=== PATIENT | male | born 1950 | race Caucasian/White ===

== ENCOUNTER 2020-06-03 13:25 | Emergency (ER) | payer MEDICARE, BC ==
[2020-06-03 13:44] VITALS: BP 103/84; PULSE 149
[2020-06-03] MEDS ORDERED: Adenosine 6 MG/2 ML SDV IVPUSH ONE (13:50)
[2020-06-03 14:55] LABS: ANION GAP 15.5 mEq/L (7-13); CHLORIDE,CL 103 mmol/L (98-107); SODIUM,NA 140 mmol/L (136-145)
--- NOTE | 2020-06-03 15:13 | EDM.PDOC ---
ED HPI GENERAL MEDICAL PROBLEM - General Chief Complaint: Cardiovascular Problem Stated Complaint: BP 90/50 HEART RATE 150 PT SAYS Time Seen by Provider: 06/03/20 13:50 Source of Information: Reports: Patient, RN, RN Notes Reviewed History Limitations: Reports: No Limitations - History of Present Illness INITIAL COMMENTS - FREE TEXT/NARRATIVE: Patient presents to ER with complaint of low blood pressure, and rapid heart rate. Patient states he is a chronic kidney disease patient, on peritoneal dialysis. States he had a hernia repair recently, so has not doing the peritoneal dialysis, is doing short-term hemodialysis. Patient states his Norvasc and his metoprolol has recently been cut back to half doses, Norvasc 5 daily, metoprolol 100 mg twice daily. Patient is to check his blood pressure daily before taking his medications. Patient states he did not check his blood pressure this morning, and took his medications. Admits to getting a sweaty hot feeling, followed by a chill. Denies any recent illness, chest pains shortness of breath, nausea, vomiting, diarrhea. Onset: Today, Sudden - Related Data Allergies Allergy/AdvReac Type Severity Reaction Status Date / Time lidocaine Allergy Rash Verified 06/03/20 13:50 Penicillins Allergy Cannot Verified 06/03/20 13:50 Remember Home Meds: Home Meds Calcitriol 0.5 mcg PO DAILY 05/26/15 [History] Citric Acid/Sodium Citrate [Cytra-2 Oral Solution] 60 ml PO BID 05/26/15 [History] Fludrocortisone Acetate 0.1 mg PO ASDIRECTED 05/26/15 [History] Isosorbide Mononitrate [Imdur] 60 mg PO BID 05/26/15 [History] Metoprolol Succinate 200 mg PO BID 05/26/15 [History] amLODIPine [Norvasc] 10 mg PO DAILY tablet 06/03/15 [Rx] Fludrocortisone [Florinef] 0.1 mg PO DAILY 09/25/16 [History] [place]-3/DHA/Epa/Fish Oil [[place]-3 Fish Oil 1,000 MG Sfgl] 1,000 mg PO DAILY 09/25/16 [History] hydrALAZINE [Apresoline] 50 mg PO BID 09/25/16 [History] Past Medical History HEENT History: Reports: Impaired Vision Cardiovascular History: Reports: Hypertension Respiratory History: Reports: None Gastrointestinal History: Reports: None Genitourinary History: Reports: Acute Renal Failure, BPH, Chronic Renal Insuffiency, Dialysis, Peritoneal, Prostate Disorder, Other (See Below) Other Genitourinary History: "40% kidney function" Musculoskeletal History: Reports: None Neurological History: Reports: None Psychiatric History: Reports: Anxiety, Depression Endocrine/Metabolic History: Reports: None Hematologic History: Reports: Blood Transfusion(s), Other (See Below) Other Hematologic History: MONOCLONAL GAMMOPATHY Immunologic History: Reports: None Oncologic (Cancer) History: Reports: None Dermatologic History: Reports: Eczema, Other (See Below) Other Dermatologic History: HX OF ECEZEMA ON BILAT HANDS; REDDENED AREAS UNDER NICOTINE PATCHES - Infectious Disease History Infectious Disease History: Reports: Chicken Pox, Mumps - Past Surgical History Head Surgeries/Procedures: Reports: None Cardiovascular Surgical History: Reports: None Respiratory Surgical History: Reports: None GI Surgical History: Reports: Hernia Repair/Other, Other (See Below) Male Surgical History: Reports: TURP-Transurethral Resection of Prostate Endocrine Surgical History: Reports: None Neurological Surgical History: Reports: None Musculoskeletal Surgical History: Reports: None Social & Family History - Family History Family Medical History: Noncontributory - Tobacco Use Smoking Status *Q: Current Every Day Smoker Years of Tobacco use: 30 Packs/Tins Daily: 0.5 Second Hand Smoke Exposure: No - Caffeine Use Caffeine Use: Reports: None - Recreational Drug Use Recreational Drug Use: No - Living Situation & Occupation Living situation: Reports: , with Family Occupation: Employed ED ROS GENERAL - Review of Systems Review Of Systems: Comprehensive ROS is negative, except as noted in HPI. ED EXAM, GENERAL - Physical Exam Exam: See Below Exam Limited By: No Limitations General Appearance: Alert, WD/WN, No Apparent Distress Eye Exam: Bilateral Eye: EOMI, Normal Inspection Ears: Normal External Exam, Hearing Grossly Normal Nose: Normal Inspection Throat/Mouth: Normal Inspection, Normal Voice, No Airway Compromise Head: Atraumatic, Normocephalic Neck: Normal Inspection, Supple, Non-Tender, Full Range of Motion Respiratory/Chest: No Respiratory Distress, Lungs Clear, Normal Breath Sounds, No Accessory Muscle Use, Chest Non-Tender Cardiovascular: Normal Peripheral Pulses, Regular Rate, Rhythm, No Edema, No Gallop, No JVD, No Murmur, No Rub, Tachycardia Peripheral Pulses: 2+: Radial (L), Radial (R) GI/Abdominal: Normal Bowel Sounds, Soft, Non-Tender (Male) Exam: Deferred Rectal (Males) Exam: Deferred Back Exam: Normal Inspection, Full Range of Motion, NT Extremities: Normal Inspection, Normal Range of Motion, Non-Tender, Normal Capillary Refill, No Pedal Edema Neurological: Alert, Oriented, CN II-XII Intact, Normal Cognition, Normal Gait, Normal Reflexes, No Motor/Sensory Deficits Psychiatric: Normal Affect, Normal Mood Skin Exam: Warm, Dry, Intact, Normal Color, No Rash Lymphatic: No Adenopathy Course - Vital Signs Last Recorded V/S: Last Vital Signs Temp 97.9 F 06/03/20 13:40 Pulse 149 H 06/03/20 13:40 Resp 24 H 06/03/20 13:40 BP 103/84 06/03/20 13:40 Pulse Ox 100 06/03/20 13:40 - Orders/Labs/Meds Orders: Active Orders 24 hr Category Date Time Status EKG 12 Lead [EKG Documentation Completion] [RC] STAT Care 06/03/20 13:45 Active EKG Documentation Completion [RC] STAT Care 06/03/20 14:04 Active Labs: Laboratory Tests 06/03/20 06/03/20 Range/Units 14:28 14:28 WBC 11.0 H (5.0-10.0) 10^3/uL RBC 3.20 L (4.6-6.2) 10^6/uL Hgb 10.1 L D (14.0-18.0) g/dL Hct 31.4 L (40.0-54.0) % MCV 98.1 D (80-100) fL MCH 31.6 (27.0-34.0) pg MCHC 32.2 L (33.0-35.0) g/dL Plt Count 503 H (150-450) 10^3/uL Neut % (Auto) 60.4 (42.2-75.2) % Lymph % (Auto) 20.3 L (20.5-50.1) % [place] % (Auto) 11.1 H (2-8) % Eos % (Auto) 7.3 H (1.0-3.0) % Baso % (Auto) 0.9 (0.0-1.0) % Sodium 140 (136-145) mmol/L Potassium 4.5 (3.5-5.1) mmol/L Chloride 103 (98-107) mmol/L Carbon Dioxide 26 (21-32) mmol/L Anion Gap 15.5 H (7-13) mEq/L BUN 33 H (7-18) mg/dL Creatinine 6.52 H* (0.70-1.30) mg/dL Est Cr Clr Drug Dosing 11.39 mL/min Estimated GFR (MDRD) 9 BUN/Creatinine Ratio 5.1 (No establ ref range) Glucose 109 H (74-99) mg/dL Calcium 8.3 L (8.5-10.1) mg/dL Total Bilirubin 0.2 (0.2-1.0) mg/dL AST 13 L (15-37) U/L ALT 14 L (16-63) U/L Alkaline Phosphatase 64 (46-116) U/L Troponin I < 0.017 (0.000-0.056) ng/mL Total Protein 7.6 (6.4-8.2) g/dL Albumin 2.7 L (3.4-5.0) g/dL Globulin 4.9 Albumin/Globulin Ratio 0.55 Meds: Medications Discontinued Medications Generic Name Dose Route Start Last Admin Trade Name Abigail PRN Reason Stop Dose Admin Adenosine 6 mg 06/03/20 13:50 06/03/20 13:58 Adenocard IVPUSH 06/03/20 13:51 6 mg NOW ONE Administration - Re-Assessments/Exams Free Text/Narrative Re-Assessment/Exam: 06/03/20 15:11 Heart rate initially 150s and regular. Adenosine 6 mg given IV push. Heart rate slowed to 70s sinus rhythm. 06/03/20 15:12 Pressure initially 103/59. After adenosine and heart rate slowed, blood pressure 159/77. Departure - Departure Time of Disposition: 15:14 Disposition: Home, Self-Care 01 Reason for Transfer *Q: Other Condition: Fair Clinical Impression: Chronic kidney disease on chronic dialysis, SVT (supraventricular tachycardia) Instructions: Supraventricular Tachycardia, Adult, [id number] Additional Instructions: Follow-up with your program project manager Follow-up with your primary care provider in the clinic Return to the ER with any worsening of symptoms Monitor blood pressure and heart rate Take medications as prescribed Sepsis Event Note (ED) - Evaluation Sepsis Screening Result: No Definite Risk - Focused Exam Vital Signs: Vital Signs Temp Pulse Resp BP Pulse Ox 06/03/20 13:40 97.9 F 149 H 24 H 103/84 100 - My Orders Last 24 Hours: My Active Orders 06/03/20 13:45 EKG 12 Lead [EKG Documentation Completion] [RC] STAT 06/03/20 14:04 EKG Documentation Completion [RC] STAT - Assessment/Plan Last 24 Hours: My Active Orders 06/03/20 13:45 EKG 12 Lead [EKG Documentation Completion] [RC] STAT 06/03/20 14:04 EKG Documentation Completion [RC] STAT
== END 2020-06-03 15:29 | disposition home or self-care (01) ==
LOC: DL.ED 13:25
DX: I47.1 Supraventricular tachycardia (principal); I12.9 Hypertensive chronic kidney disease with stage 1 through stage 4 chronic kidney disease, or unspecified chronic kidney disease; N18.9 Chronic kidney disease, unspecified; F41.9 Anxiety disorder, unspecified; F17.210 Nicotine dependence, cigarettes, uncomplicated; Z99.2 Dependence on renal dialysis; Z88.6 Allergy status to analgesic agent; Z88.0 Allergy status to penicillin; Z79.899 Other long term (current) drug therapy
CPT/HCPCS: 36415; 80053; 84484; 85025; 93005; 96374; 99285-25; J0153

== ENCOUNTER 2020-06-05 07:00 | Emergency (ER) | payer MEDICARE, BC ==
[2020-06-05] MEDS ORDERED: Adenosine 6 MG/2 ML SDV IVPUSH ONE (07:33)
[2020-06-05 07:46] VITALS: BP 111/87; PULSE 148
--- NOTE | 2020-06-05 07:48 | EDM.PDOC ---
ED HPI GENERAL MEDICAL PROBLEM - General Chief Complaint: Cardiovascular Problem Stated Complaint: heart rate out of control Time Seen by Provider: 06/05/20 07:35 Source of Information: Reports: Patient History Limitations: Reports: No Limitations - History of Present Illness INITIAL COMMENTS - FREE TEXT/NARRATIVE: Patient presents with complaints of a rapid heart rate and low blood pressure. It started around 4 this morning and woke him from sleep. He was supposed to go for hemodialysis today, but was feeling too rough to make it so he came here for evaluation. This happened 2 days ago as well. He was given an IV push of adenosine with normalization of his heart rate. He was monitored for a while then discharged home. He had been doing well, without recurrence of symptoms, until this morning. He denies being sick since his surgery a few weeks ago for an abdominal hernia. Onset: Today Onset Time: 04:00 Duration: Constant - Related Data Allergies Allergy/AdvReac Type Severity Reaction Status Date / Time lidocaine Allergy Rash Verified 06/05/20 07:25 Penicillins Allergy Cannot Verified 06/05/20 07:25 Remember Home Meds: Home Meds Calcitriol 0.5 mcg PO DAILY 05/26/15 [History] Citric Acid/Sodium Citrate [Cytra-2 Oral Solution] 60 ml PO BID 05/26/15 [History] Fludrocortisone Acetate 0.1 mg PO ASDIRECTED 05/26/15 [History] Isosorbide Mononitrate [Imdur] 60 mg PO BID 05/26/15 [History] Metoprolol Succinate 200 mg PO BID 05/26/15 [History] amLODIPine [Norvasc] 10 mg PO DAILY tablet 06/03/15 [Rx] Fludrocortisone [Florinef] 0.1 mg PO DAILY 09/25/16 [History] [place]-3/DHA/Epa/Fish Oil [[place]-3 Fish Oil 1,000 MG Sfgl] 1,000 mg PO DAILY 09/25/16 [History] hydrALAZINE [Apresoline] 50 mg PO BID 09/25/16 [History] Sevelamer Carbonate 800 mg PO ASDIRECTED 06/05/20 [History] Past Medical History HEENT History: Reports: Impaired Vision Cardiovascular History: Reports: Hypertension Respiratory History: Reports: None Gastrointestinal History: Reports: None Genitourinary History: Reports: Acute Renal Failure, BPH, Chronic Renal Insuffiency, Dialysis, Peritoneal, Prostate Disorder, Other (See Below) Other Genitourinary History: "40% kidney function" Musculoskeletal History: Reports: None Neurological History: Reports: None Psychiatric History: Reports: Anxiety, Depression Endocrine/Metabolic History: Reports: None Hematologic History: Reports: Blood Transfusion(s), Other (See Below) Other Hematologic History: MONOCLONAL GAMMOPATHY Immunologic History: Reports: None Oncologic (Cancer) History: Reports: None Dermatologic History: Reports: Eczema, Other (See Below) Other Dermatologic History: HX OF ECEZEMA ON BILAT HANDS; REDDENED AREAS UNDER NICOTINE PATCHES - Infectious Disease History Infectious Disease History: Reports: Chicken Pox, Mumps - Past Surgical History Head Surgeries/Procedures: Reports: None Cardiovascular Surgical History: Reports: None Respiratory Surgical History: Reports: None GI Surgical History: Reports: Hernia Repair/Other, Other (See Below) Male Surgical History: Reports: TURP-Transurethral Resection of Prostate Endocrine Surgical History: Reports: None Neurological Surgical History: Reports: None Musculoskeletal Surgical History: Reports: None Social & Family History - Family History Family Medical History: Noncontributory - Caffeine Use Caffeine Use: Reports: None - Living Situation & Occupation Living situation: Reports: , with Family Occupation: Employed ED ROS GENERAL - Review of Systems Review Of Systems: Comprehensive ROS is negative, except as noted in HPI. ED EXAM, GENERAL - Physical Exam Exam: See Below Exam Limited By: No Limitations General Appearance: Alert, WD/WN, No Apparent Distress Ears: Normal External Exam Head: Atraumatic, Normocephalic Neck: Normal Inspection, Supple Respiratory/Chest: No Respiratory Distress, Lungs Clear, Normal Breath Sounds, No Accessory Muscle Use Cardiovascular: Normal Peripheral Pulses, No JVD, No Murmur, Tachycardia GI/Abdominal: Soft Extremities: Normal Inspection Neurological: Alert, Oriented, Normal Cognition Psychiatric: Normal Affect, Normal Mood Skin Exam: Warm, Dry, Intact, Normal Color, No Rash EKG INTERPRETATION EKG Date: 06/05/20 Time: 07:20 Rate (Beats/Min): 145 [place]: Normal QRS: Normal ST-T: Normal Course - Orders/Labs/Meds Orders: Active Orders 24 hr Category Date Time Status EKG 12 Lead [EKG Documentation Completion] [RC] STAT Care 06/05/20 07:29 Active Meds: Medications Discontinued Medications Generic Name Dose Route Start Last Admin Trade Name Freq PRN Reason Stop Dose Admin Adenosine 6 mg 06/05/20 07:33 Adenocard IVPUSH 06/05/20 07:34 NOW ONE Departure - Departure Time of Disposition: 08:03 Disposition: Home, Self-Care 01 Condition: Good Clinical Impression: Paroxysmal supraventricular tachycardia Instructions: Supraventricular Tachycardia, Adult Referrals: Cole Carson, EMEKA [Ordering Only Provider] - - Problem List & Annotations (1) SVT (supraventricular tachycardia) SNOMED Code(s): 6103703 Code(s): I47.1 - SUPRAVENTRICULAR TACHYCARDIA Status: Acute - Problem List Review Problem List Initiated/Reviewed/Updated: Yes - My Orders Last 24 Hours: My Active Orders 06/05/20 07:29 EKG 12 Lead [EKG Documentation Completion] [RC] STAT - Assessment/Plan Last 24 Hours: My Active Orders 06/05/20 07:29 EKG 12 Lead [EKG Documentation Completion] [RC] STAT Assessment:: 70 yo male with acute onset SVT who converted with one dose of adenosine Plan: Keep upcoming appointments with nephrology Follow up with PCP regarding recurrent SVT episodes as this was his second Advised to avoid driving until seen by his PCP Reviewed reasons to call/return to the ER
== END 2020-06-05 08:25 | disposition home or self-care (01) ==
LOC: DL.ED 07:00
DX: I47.1 Supraventricular tachycardia (principal); I12.9 Hypertensive chronic kidney disease with stage 1 through stage 4 chronic kidney disease, or unspecified chronic kidney disease; N18.9 Chronic kidney disease, unspecified; Z88.6 Allergy status to analgesic agent; Z88.0 Allergy status to penicillin
CPT/HCPCS: 93005; 96374; 99284; J0153; 93010

== ENCOUNTER 2020-06-14 02:43 | Emergency (ER) | payer MEDICARE, BC ==
[2020-06-14 02:53] VITALS: BP 116/80; PULSE 138
[2020-06-14] MEDS ORDERED: Adenosine 6 MG/2 ML SDV IVPUSH ONE (02:54)
--- NOTE | 2020-06-14 02:57 | EDM.PDOC ---
ED HPI GENERAL MEDICAL PROBLEM - General Chief Complaint: Cardiovascular Problem Stated Complaint: HEART RATE WAY UP AGAIN Time Seen by Provider: 06/14/20 02:55 Source of Information: Reports: Patient History Limitations: Reports: No Limitations - History of Present Illness INITIAL COMMENTS - FREE TEXT/NARRATIVE: woke up with heart racing. had this few times already. denies chest pain and has appt with cardio next month. - Related Data Allergies Allergy/AdvReac Type Severity Reaction Status Date / Time lidocaine Allergy Rash Verified 06/14/20 02:50 Penicillins Allergy Cannot Verified 06/14/20 02:50 Remember Home Meds: Home Meds Calcitriol 0.5 mcg PO DAILY 05/26/15 [History] Citric Acid/Sodium Citrate [Cytra-2 Oral Solution] 60 ml PO BID 05/26/15 [History] Isosorbide Mononitrate [Imdur] 60 mg PO BID 05/26/15 [History] Metoprolol Succinate 100 mg PO BID 05/26/15 [History] Fludrocortisone [Florinef] 0.1 mg PO DAILY 09/25/16 [History] [place]-3/DHA/Epa/Fish Oil [[place]-3 Fish Oil 1,000 MG Sfgl] 1,000 mg PO DAILY 09/25/16 [History] hydrALAZINE [Apresoline] 50 mg PO BID 09/25/16 [History] Sevelamer Carbonate 800 mg PO ASDIRECTED 06/05/20 [History] amLODIPine [Norvasc] 5 mg PO DAILY 06/05/20 [History] Past Medical History HEENT History: Reports: Impaired Vision Cardiovascular History: Reports: Hypertension Other Cardiovascular History: SVT Respiratory History: Reports: None Gastrointestinal History: Reports: None Genitourinary History: Reports: Acute Renal Failure, BPH, Chronic Renal Insuffiency, Dialysis, Peritoneal, Prostate Disorder, Other (See Below) Other Genitourinary History: "40% kidney function" Musculoskeletal History: Reports: None Neurological History: Reports: None Psychiatric History: Reports: Anxiety, Depression Endocrine/Metabolic History: Reports: None Hematologic History: Reports: Blood Transfusion(s), Other (See Below) Other Hematologic History: MONOCLONAL GAMMOPATHY Immunologic History: Reports: None Oncologic (Cancer) History: Reports: None Dermatologic History: Reports: Eczema, Other (See Below) Other Dermatologic History: HX OF ECEZEMA ON BILAT HANDS; REDDENED AREAS UNDER NICOTINE PATCHES - Infectious Disease History Infectious Disease History: Reports: Chicken Pox, Mumps - Past Surgical History Head Surgeries/Procedures: Reports: None Cardiovascular Surgical History: Reports: None Respiratory Surgical History: Reports: None GI Surgical History: Reports: Hernia Repair/Other, Other (See Below) Male Surgical History: Reports: TURP-Transurethral Resection of Prostate Endocrine Surgical History: Reports: None Neurological Surgical History: Reports: None Musculoskeletal Surgical History: Reports: None Social & Family History - Family History Family Medical History: Noncontributory - Caffeine Use Caffeine Use: Reports: None - Living Situation & Occupation Living situation: Reports: , with Family Occupation: Employed ED ROS GENERAL - Review of Systems Review Of Systems: Comprehensive ROS is negative, except as noted in HPI. ED EXAM, GENERAL - Physical Exam Exam: See Below Exam Limited By: No Limitations General Appearance: Alert, WD/WN, Anxious, Mild Distress, Moderate Distress Ears: Hearing Grossly Normal Throat/Mouth: Normal Voice, No Airway Compromise Head: Atraumatic Neck: Non-Tender, Full Range of Motion Respiratory/Chest: No Respiratory Distress Cardiovascular: Tachycardia GI/Abdominal: Soft, Non-Tender (Male) Exam: Deferred Rectal (Males) Exam: Deferred Extremities: No Pedal Edema Neurological: Alert, Oriented, Normal Cognition, Normal Gait, No Motor/Sensory Deficits Psychiatric: Anxious Skin Exam: Warm, Dry, Normal Color Lymphatic: No Adenopathy Course - Vital Signs Last Recorded V/S: Last Vital Signs Temp 36.7 C 06/14/20 02:51 Pulse 138 H 06/14/20 02:51 Resp 21 H 06/14/20 02:51 BP 116/80 06/14/20 02:51 Pulse Ox 100 06/14/20 02:51 - Orders/Labs/Meds Orders: Active Orders 24 hr Category Date Time Status EKG 12 Lead [EKG Documentation Completion] [RC] STAT Care 06/14/20 02:55 Active Labs: Laboratory Tests 06/14/20 06/14/20 Range/Units 02:59 02:59 WBC 13.3 H (5.0-10.0) 10^3/uL RBC 3.76 L (4.6-6.2) 10^6/uL Hgb 11.9 L D (14.0-18.0) g/dL Hct 36.4 L (40.0-54.0) % MCV 96.8 (80-100) fL MCH 31.6 (27.0-34.0) pg MCHC 32.7 L (33.0-35.0) g/dL Plt Count 461 H (150-450) 10^3/uL Neut % (Auto) 55.4 (42.2-75.2) % Lymph % (Auto) 21.3 (20.5-50.1) % [place] % (Auto) 11.8 H (2-8) % Eos % (Auto) 10.6 H (1.0-3.0) % Baso % (Auto) 0.9 (0.0-1.0) % Add Manual Diff Yes Neutrophils % (Manual) 58 (42-75) % Lymphocytes % (Manual) 24 (20-50) % Monocytes % (Manual) 10 H (2-8) % Eosinophils % (Manual) 8 H (1-3) % Sodium 138 (136-145) mmol/L Potassium 4.3 (3.5-5.1) mmol/L Chloride 104 (98-107) mmol/L Carbon Dioxide 18 L (21-32) mmol/L Anion Gap 20.3 H (7-13) mEq/L BUN 55 H (7-18) mg/dL Creatinine 8.05 H* D (0.70-1.30) mg/dL Est Cr Clr Drug Dosing 9.22 mL/min Estimated GFR (MDRD) 7 BUN/Creatinine Ratio 6.8 (No establ ref range) Glucose 130 H (74-99) mg/dL Calcium 9.2 (8.5-10.1) mg/dL Total Bilirubin 0.3 (0.2-1.0) mg/dL AST 10 L (15-37) U/L ALT 19 (16-63) U/L Alkaline Phosphatase 66 (46-116) U/L Troponin I < 0.017 (0.000-0.056) ng/mL Total Protein 8.6 H (6.4-8.2) g/dL Albumin 3.2 L (3.4-5.0) g/dL Globulin 5.4 Albumin/Globulin Ratio 0.59 Meds: Medications Discontinued Medications Generic Name Dose Route Start Last Admin Trade Name Freq PRN Reason Stop Dose Admin Adenosine 6 mg 06/14/20 02:54 06/14/20 03:05 Adenocard IVPUSH 06/14/20 02:55 6 mg NOW ONE Administration - Re-Assessments/Exams Free Text/Narrative Re-Assessment/Exam: 06/14/20 03:10 converted back to NSR @ 76 with 1x adenosine. pt states fells better and denies CP. 06/14/20 03:45 results discussed with pt who remains feeling good. states has dialysis @ [facility] this am. advised pt to contact cardio while in this am. Departure - Departure Time of Disposition: 03:46 Disposition: Home, Self-Care 01 Condition: Good Clinical Impression: Paroxysmal supraventricular tachycardia Instructions: Supraventricular Tachycardia, Adult, [id number] Forms: ED Department Discharge Additional Instructions: 1) rest 2) notify web offset press feeder while in [place] today 3) recheck if there is any change or concern Sepsis Event Note (ED) - Evaluation Sepsis Screening Result: No Definite Risk - Focused Exam Vital Signs: Vital Signs Temp Pulse Resp BP Pulse Ox 06/14/20 02:51 36.7 C 138 H 21 H 116/80 100 - My Orders Last 24 Hours: My Active Orders 06/14/20 02:55 EKG 12 Lead [EKG Documentation Completion] [RC] STAT - Assessment/Plan Last 24 Hours: My Active Orders 06/14/20 02:55 EKG 12 Lead [EKG Documentation Completion] [RC] STAT
[2020-06-14 03:33] LABS: ANION GAP 20.3 mEq/L (7-13); CHLORIDE,CL 104 mmol/L (98-107); SODIUM,NA 138 mmol/L (136-145)
== END 2020-06-14 04:00 | disposition home or self-care (01) ==
LOC: DL.ED 02:43
DX: I47.1 Supraventricular tachycardia (principal); I10 Essential (primary) hypertension; Z79.899 Other long term (current) drug therapy; Z88.6 Allergy status to analgesic agent; Z88.0 Allergy status to penicillin
CPT/HCPCS: 36415; 80053; 84484; 85025; 93005; 96374; 99284; 99285; J0153

== ENCOUNTER 2020-10-03 16:27 | Emergency (ER) | payer MEDICARE, BC ==
[2020-10-03 16:43] VITALS: BP 133/87; PULSE 136
--- NOTE | 2020-10-03 17:00 | EDM.PDOC ---
<RoderickJerad Maria Elena - Last Filed: 10/03/20 17:14> ED HPI GENERAL MEDICAL PROBLEM - General Chief Complaint: Chest Pain Stated Complaint: IRREGULAR HEART RATE Time Seen by Provider: 10/03/20 16:56 Source of Information: Reports: Patient, RN History Limitations: Reports: No Limitations - History of Present Illness INITIAL COMMENTS - FREE TEXT/NARRATIVE: 70 y/o M c/o fast heart rate since this morning. Pt had one episode of vomiting. Hx of afib and is due to have an ablation. Has been seen in the er before for the same complaint. Denies CP, SOB, abd pn, recent trauma, abd pn, fever, cough, chills, drugs, etoh. Onset: Today, Sudden Duration: Hour(s): Location: Reports: Chest Improves with: Reports: None Worsens with: Reports: None Associated Symptoms: Reports: Nausea/Vomiting chest,neck Pain Score (Numeric/FACES): 3 - Related Data Allergies Allergy/AdvReac Type Severity Reaction Status Date / Time lidocaine Allergy Rash Verified 10/03/20 16:41 Penicillins Allergy Cannot Verified 10/03/20 16:41 Remember Home Meds: Home Meds Metoprolol Succinate 200 mg PO BID 05/26/15 [History] [place]-3/DHA/Epa/Fish Oil [[place]-3 Fish Oil 1,000 MG Sfgl] 1,000 mg PO DAILY 09/25/16 [History] hydrALAZINE [Apresoline] 50 mg PO BID 09/25/16 [History] Sevelamer Carbonate 800 mg PO ASDIRECTED 06/05/20 [History] Acetaminophen [Tylenol] 650 mg PO Q6HR PRN 09/01/20 [History] Aspirin [Ecotrin EC] 81 mg PO DAILY 09/01/20 [History] Mupirocin Cream [Bactroban Crm] 1 applicful TOP DAILY PRN 09/01/20 [History] Zinc 50 mg PO DAILY 09/01/20 [History] amLODIPine Besylate [Norvasc] 10 mg PO DAILY 09/01/20 [History] atorvaSTATin [Lipitor] 10 mg PO DAILY 09/01/20 [History] calcitrioL [Rocaltrol] 0.25 mcg PO .M,T,W,R,F 09/01/20 [History] Past Medical History HEENT History: Reports: Impaired Vision Cardiovascular History: Reports: Afib, Hypertension Other Cardiovascular History: SVT Respiratory History: Reports: None Gastrointestinal History: Reports: Bowel Obstruction Genitourinary History: Reports: Acute Renal Failure, BPH, Chronic Renal Insuffiency, Dialysis, Peritoneal, Prostate Disorder, Other (See Below) Other Genitourinary History: "40% kidney function" Musculoskeletal History: Reports: None Neurological History: Reports: None Psychiatric History: Reports: Anxiety, Depression Endocrine/Metabolic History: Reports: None Hematologic History: Reports: Blood Transfusion(s), Other (See Below) Other Hematologic History: MONOCLONAL GAMMOPATHY Immunologic History: Reports: None Oncologic (Cancer) History: Reports: None Dermatologic History: Reports: Eczema, Other (See Below) Other Dermatologic History: HX OF ECEZEMA ON BILAT HANDS; REDDENED AREAS UNDER NICOTINE PATCHES - Infectious Disease History Infectious Disease History: Reports: Chicken Pox, Mumps - Past Surgical History Head Surgeries/Procedures: Reports: None HEENT Surgical History: Reports: None Cardiovascular Surgical History: Reports: None Respiratory Surgical History: Reports: None GI Surgical History: Reports: Hernia Repair/Other, Other (See Below) Other GI Surgeries/Procedures: SPLENECTOMY Male Surgical History: Reports: TURP-Transurethral Resection of Prostate Endocrine Surgical History: Reports: None Neurological Surgical History: Reports: None Musculoskeletal Surgical History: Reports: None Dermatological Surgical History: Reports: None Social & Family History - Family History Family Medical History: No Pertinent Family History - Tobacco Use Tobacco Use Status *Q: Current Every Day Tobacco User Years of Tobacco use: 45 Packs/Tins Daily: 1 Second Hand Smoke Exposure: No - Caffeine Use Caffeine Use: Reports: Coffee - Recreational Drug Use Recreational Drug Use: No - Living Situation & Occupation Living situation: Reports: , with Family Occupation: Employed ED ROS GENERAL - Review of Systems Review Of Systems: Comprehensive ROS is negative, except as noted in HPI. ED EXAM, GENERAL - Physical Exam Exam: See Below Exam Limited By: No Limitations General Appearance: Alert, WD/WN, No Apparent Distress Ears: Normal External Exam, Normal Canal, Hearing Grossly Normal, Normal TMs Ear Exam: Bilateral Ear: Auricle Normal, Canal Normal, TM normal Nose: Normal Inspection, Normal Mucosa, No Blood Throat/Mouth: Normal Inspection, Normal Lips, Normal Teeth, Normal Gums, Normal Oropharynx, Normal Voice, No Airway Compromise Head: Atraumatic, Normocephalic Neck: Normal Inspection, Supple, Non-Tender, Full Range of Motion Respiratory/Chest: No Respiratory Distress, Lungs Clear, Normal Breath Sounds, No Accessory Muscle Use, Chest Non-Tender Cardiovascular: No Edema, No Gallop, No JVD, No Murmur, No Rub, Tachycardia GI/Abdominal: Soft, Non-Tender, Other (urostomy present) (Male) Exam: Deferred Rectal (Males) Exam: Deferred Back Exam: Normal Inspection Extremities: Normal Inspection, Normal Range of Motion, No Pedal Edema Neurological: Alert, Oriented, CN II-XII Intact, Normal Cognition, Normal Gait, Normal Reflexes, No Motor/Sensory Deficits Psychiatric: Normal Affect, Normal Mood Skin Exam: Warm, Dry, Intact, Normal Color, No Rash Departure - Departure Disposition: Home, Self-Care 01 Clinical Impression: Atrial fibrillation with RVR Atrial fibrillation Qualifiers: Atrial fibrillation type: unspecified chronic Qualified Code(s): 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, 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; I48.2 - Chronic atrial fibrillation Instructions: Atrial Fibrillation, [id number] Forms: ED Department Discharge Additional Instructions: Return to the ER with any further problems Follow up with Cardiology tomorrow Sepsis Event Note (ED) - Evaluation Sepsis Screening Result: No Definite Risk <Hailey Dunn - Last Filed: 10/03/20 18:50> Course - Vital Signs Last Recorded V/S: Last Vital Signs Temp 98 F 10/03/20 16:35 Pulse 136 H 10/03/20 16:35 Resp 27 H 10/03/20 16:35 BP 133/87 10/03/20 16:35 Pulse Ox 97 10/03/20 16:35 - Orders/Labs/Meds Orders: Active Orders 24 hr Category Date Time Status EKG Documentation Completion [RC] STAT Care 10/03/20 16:36 Active EKG Documentation Completion [RC] STAT Care 10/03/20 17:28 Active Sodium Chloride 0.9% [Normal Saline] 1,000 ml Med 10/03/20 17:15 Active IV ASDIRECTED Medication Orders Sodium Chloride (Normal Saline) 1,000 mls @ 1,999 mls/hr IV ASDIRECTED MINOO Last Infusion: 10/03/20 18:00 Dose: 175 mls/hr Documented by: Admin: 10/03/20 17:13 Dose: 1,999 mls/hr Documented by: FEDERICO Labs: Laboratory Tests 10/03/20 10/03/20 Range/Units 16:41 16:41 WBC 15.7 H (5.0-10.0) 10^3/uL RBC 3.20 L (4.6-6.2) 10^6/uL Hgb 10.0 L (14.0-18.0) g/dL Hct 30.8 L (40.0-54.0) % MCV 96.3 (80-100) fL MCH 31.3 (27.0-34.0) pg MCHC 32.5 L (33.0-35.0) g/dL Plt Count 447 (150-450) 10^3/uL Neut % (Auto) 58.5 (42.2-75.2) % Lymph % (Auto) 18.7 L (20.5-50.1) % [place] % (Auto) 12.5 H (2-8) % Eos % (Auto) 9.6 H (1.0-3.0) % Baso % (Auto) 0.7 (0.0-1.0) % Add Manual Diff Yes Neutrophils % (Manual) 57 (42-75) % Lymphocytes % (Manual) 21 (20-50) % Monocytes % (Manual) 10 H (2-8) % Eosinophils % (Manual) 12 H (1-3) % Toxic Granulation 2+ moderate Sodium 134 L (136-145) mmol/L Potassium 4.0 (3.5-5.1) mmol/L Chloride 98 (98-107) mmol/L Carbon Dioxide 28 (21-32) mmol/L Anion Gap 12.0 (7-13) mEq/L BUN 34 H (7-18) mg/dL Creatinine 7.10 H* (0.70-1.30) mg/dL Est Cr Clr Drug Dosing 10.46 mL/min Estimated GFR (MDRD) 8 BUN/Creatinine Ratio 4.8 (No establ ref range) Glucose 103 H (74-99) mg/dL Calcium 8.7 (8.5-10.1) mg/dL Magnesium 1.9 (1.8-2.4) mg/dL Total Bilirubin 0.3 (0.2-1.0) mg/dL AST 12 L (15-37) U/L ALT 20 (16-63) U/L Alkaline Phosphatase 80 (46-116) U/L Troponin I < 0.017 (0.000-0.056) ng/mL Total Protein 8.0 (6.4-8.2) g/dL Albumin 2.7 L (3.4-5.0) g/dL Globulin 5.3 Albumin/Globulin Ratio 0.51 Meds: Medications Generic Name Dose Route Start Last Admin Trade Name Freq PRN Reason Stop Dose Admin Sodium Chloride 1,000 mls @ 1,999 mls/hr 10/03/20 17:15 10/03/20 18:00 Normal Saline IV Infused ASDIRECTED MINOO Infusion Discontinued Medications Generic Name Dose Route Start Last Admin Trade Name Freq PRN Reason Stop Dose Admin Diltiazem HCl 5 mg 10/03/20 17:09 10/03/20 17:19 Diltiazem IVPUSH 10/03/20 17:10 5 mg ONETIME ONE Administration Diltiazem HCl 10 mg 10/03/20 17:51 10/03/20 17:57 Diltiazem IVPUSH 10/03/20 17:52 10 mg ONETIME ONE Administration - Re-Assessments/Exams Free Text/Narrative Re-Assessment/Exam: 10/03/20 18:24 I personally performed or re-performed the physical examination and medical decision making. I have verified all student documentation or findings, including history, physical exam and/or medical decision making. Departure - Departure Time of Disposition: 18:48 Reason for Transfer *Q: Other Condition: Good Sepsis Event Note (ED) - Focused Exam Vital Signs: Vital Signs Temp Pulse Resp BP Pulse Ox 10/03/20 16:35 98 F 136 H 27 H 133/87 97 - My Orders Last 24 Hours: My Active Orders 10/03/20 17:15 Sodium Chloride 0.9% [Normal Saline] 1,000 ml IV ASDIRECTED - Assessment/Plan Last 24 Hours: My Active Orders 10/03/20 17:15 Sodium Chloride 0.9% [Normal Saline] 1,000 ml IV ASDIRECTED
[2020-10-03] MEDS ORDERED: Diltiazem 25 MG/5 ML SDV IVPUSH ONE ×2 (17:09→17:51)
[2020-10-03 17:11] LABS: CHLORIDE,CL 98 mmol/L (98-107); SODIUM,NA 134 mmol/L (136-145)
[2020-10-03] MEDS ORDERED: Sodium Chloride 0.9% 1,000 ML IV SCH (17:15)
== END 2020-10-03 19:00 | disposition home or self-care (01) ==
LOC: DL.ED 16:27
DX: I48.20 Chronic atrial fibrillation, unspecified (principal); I12.9 Hypertensive chronic kidney disease with stage 1 through stage 4 chronic kidney disease, or unspecified chronic kidney disease; N18.9 Chronic kidney disease, unspecified; Z88.0 Allergy status to penicillin; Z88.4 Allergy status to anesthetic agent; Z72.0 Tobacco use; Z79.899 Other long term (current) drug therapy
CPT/HCPCS: 36415; 80053; 83735; 84484; 85025; 93005; 96374; 96376; 99285; J3490; J7030; 99283

== ENCOUNTER 2020-10-10 06:46 | Emergency (ER) | payer MEDICARE, BC ==
[2020-10-10] MEDS ORDERED: Diltiazem 25 MG/5 ML SDV IVPUSH ONE ×2 (07:03→08:03)
[2020-10-10 07:12] VITALS: BP 121/76; PULSE 138
--- NOTE | 2020-10-10 07:30 | EDM.PDOC ---
ED HPI GENERAL MEDICAL PROBLEM - General Chief Complaint: Cardiovascular Problem Stated Complaint: RAPID HEART RATE Time Seen by Provider: 10/10/20 07:00 Source of Information: Reports: Patient, RN History Limitations: Reports: No Limitations - History of Present Illness INITIAL COMMENTS - FREE TEXT/NARRATIVE: ED with c/o SOB, dizzy, fast heart rate. Reports noted it coming on last todd,but worse around 430. Hx same, Seen in ED last week. Scheduled for ablation on . Denied chest pain. Home dialysis, last run at 530 this am. No recent fever, chills or cough. No COVID concerns, due for pre-procedural testing tomorrow. - Related Data Allergies Allergy/AdvReac Type Severity Reaction Status Date / Time lidocaine Allergy Rash Verified 10/10/20 07:10 Penicillins Allergy Cannot Verified 10/10/20 07:10 Remember Home Meds: Home Meds Metoprolol Succinate 200 mg PO BID 05/26/15 [History] [place]-3/DHA/Epa/Fish Oil [[place]-3 Fish Oil 1,000 MG Sfgl] 1,000 mg PO DAILY 09/25/16 [History] hydrALAZINE [Apresoline] 50 mg PO BID 09/25/16 [History] Sevelamer Carbonate 800 mg PO ASDIRECTED 06/05/20 [History] Acetaminophen [Tylenol] 650 mg PO Q6HR PRN 09/01/20 [History] Aspirin [Ecotrin EC] 81 mg PO DAILY 09/01/20 [History] Mupirocin Cream [Bactroban Crm] 1 applicful TOP DAILY PRN 09/01/20 [History] Zinc 50 mg PO DAILY 09/01/20 [History] amLODIPine Besylate [Norvasc] 10 mg PO DAILY 09/01/20 [History] atorvaSTATin [Lipitor] 10 mg PO DAILY 09/01/20 [History] calcitrioL [Rocaltrol] 0.25 mcg PO .M,T,W,R,F 09/01/20 [History] Triamcinolone Acetonide [Triamcinolone Acetonide 0.1% Oint] 1 applic TOP ASDIRECTED 10/10/20 [History] Past Medical History HEENT History: Reports: Impaired Vision Cardiovascular History: Reports: Afib, Hypertension Other Cardiovascular History: SVT Respiratory History: Reports: None Gastrointestinal History: Reports: Bowel Obstruction Genitourinary History: Reports: Acute Renal Failure, BPH, Chronic Renal Insuffiency, Dialysis, Peritoneal, Prostate Disorder, Other (See Below) Other Genitourinary History: "40% kidney function" Musculoskeletal History: Reports: None Neurological History: Reports: None Psychiatric History: Reports: Anxiety, Depression Endocrine/Metabolic History: Reports: None Hematologic History: Reports: Blood Transfusion(s), Other (See Below) Other Hematologic History: MONOCLONAL GAMMOPATHY Immunologic History: Reports: None Oncologic (Cancer) History: Reports: None Dermatologic History: Reports: Eczema, Other (See Below) Other Dermatologic History: HX OF ECEZEMA ON BILAT HANDS; REDDENED AREAS UNDER NICOTINE PATCHES - Infectious Disease History Infectious Disease History: Reports: Chicken Pox, Mumps - Past Surgical History Head Surgeries/Procedures: Reports: None HEENT Surgical History: Reports: None Cardiovascular Surgical History: Reports: None Respiratory Surgical History: Reports: None GI Surgical History: Reports: Hernia Repair/Other, Other (See Below) Other GI Surgeries/Procedures: SPLENECTOMY Male Surgical History: Reports: TURP-Transurethral Resection of Prostate Endocrine Surgical History: Reports: None Neurological Surgical History: Reports: None Musculoskeletal Surgical History: Reports: None Dermatological Surgical History: Reports: None Social & Family History - Family History Family Medical History: No Pertinent Family History - Tobacco Use Tobacco Use Status *Q: Never Tobacco User Second Hand Smoke Exposure: No - Caffeine Use Caffeine Use: Reports: None - Recreational Drug Use Recreational Drug Use: No - Living Situation & Occupation Living situation: Reports: , with Family Occupation: Employed ED ROS GENERAL - Review of Systems Review Of Systems: Comprehensive ROS is negative, except as noted in HPI. ED EXAM, GENERAL - Physical Exam Exam: See Below Exam Limited By: No Limitations General Appearance: Alert, Mild Distress Eye Exam: Bilateral Eye: EOMI Ears: Normal External Exam, Hearing Loss Nose: Normal Inspection Throat/Mouth: Normal Inspection Head: Atraumatic, Normocephalic Neck: Normal Inspection Respiratory/Chest: No Respiratory Distress Cardiovascular: Normal Peripheral Pulses, Regular Rate, Rhythm, Tachycardia GI/Abdominal: Normal Bowel Sounds Extremities: Normal Inspection, Normal Range of Motion Neurological: Alert, Oriented Psychiatric: Normal Affect Skin Exam: Warm, Dry, Intact, Normal Color Course - Vital Signs Last Recorded V/S: Last Vital Signs Temp 98.6 F 10/10/20 06:55 Pulse 138 H 10/10/20 06:55 Resp 18 10/10/20 06:55 BP 121/76 10/10/20 06:55 Pulse Ox 100 10/10/20 06:55 - Orders/Labs/Meds Labs: Laboratory Tests 10/10/20 10/10/20 10/10/20 Range/Units 07:07 07:07 07:07 WBC 15.3 H (5.0-10.0) 10^3/uL RBC 3.43 L (4.6-6.2) 10^6/uL Hgb 10.9 L (14.0-18.0) g/dL Hct 32.9 L (40.0-54.0) % MCV 95.9 (80-100) fL MCH 31.8 (27.0-34.0) pg MCHC 33.1 (33.0-35.0) g/dL Plt Count 450 (150-450) 10^3/uL Neut % (Auto) 64.3 (42.2-75.2) % Lymph % (Auto) 14.8 L (20.5-50.1) % [place] % (Auto) 11.2 H (2-8) % Eos % (Auto) 9.0 H (1.0-3.0) % Baso % (Auto) 0.7 (0.0-1.0) % PT 9.6 (9.0-12.0) SEC INR 1.0 (0.9-1.2) Sodium 132 L (136-145) mmol/L Potassium 4.0 (3.5-5.1) mmol/L Chloride 97 L (98-107) mmol/L Carbon Dioxide 24 (21-32) mmol/L Anion Gap 15.0 H (7-13) mEq/L BUN 37 H (7-18) mg/dL Creatinine 7.27 H* (0.70-1.30) mg/dL Est Cr Clr Drug Dosing 10.21 mL/min Estimated GFR (MDRD) 8 BUN/Creatinine Ratio 5.1 (No establ ref range) Glucose 134 H (74-99) mg/dL Calcium 8.8 (8.5-10.1) mg/dL Magnesium 1.8 (1.8-2.4) mg/dL Total Bilirubin 0.3 (0.2-1.0) mg/dL AST 10 L (15-37) U/L ALT 18 (16-63) U/L Alkaline Phosphatase 76 (46-116) U/L Troponin I < 0.017 (0.000-0.056) ng/mL B-Natriuretic Peptide 641 H (0-100) pg/ml Total Protein 7.8 (6.4-8.2) g/dL Albumin 2.7 L (3.4-5.0) g/dL Globulin 5.1 Albumin/Globulin Ratio 0.53 Meds: Medications Discontinued Medications Generic Name Dose Route Start Last Admin Trade Name Freq PRN Reason Stop Dose Admin Diltiazem HCl 10 mg 10/10/20 07:03 10/10/20 07:21 Diltiazem IVPUSH 10/10/20 07:04 10 mg ONETIME ONE Administration Diltiazem HCl 10 mg 10/10/20 08:03 10/10/20 08:09 Diltiazem IVPUSH 10/10/20 08:04 10 mg ONETIME ONE Administration - Re-Assessments/Exams Free Text/Narrative Re-Assessment/Exam: COnverted to NSR after 2nd dose Cardizem. Requesting discharge home. Symptoms resolved. Departure - Departure Time of Disposition: 09:39 Disposition: Home, Self-Care 01 Condition: Good Clinical Impression: Tachycardia Forms: ED Department Discharge Additional Instructions: follow up if symptoms recur contact primary care in am light activity continue home medications Sepsis Event Note (ED) - Evaluation Sepsis Screening Result: No Definite Risk
--- NOTE | 2020-10-10 07:47 | CR ---
PROCEDURE INFORMATION: Exam: XR Chest, 1 View Exam date and time: 10/10/2020 7:25 AM Age: 70 years old Clinical indication: Shortness of breath and other: Dizzy, afib; Additional info: Dizzy, SOB afib TECHNIQUE: Imaging protocol: XR of the chest Views: Frontal portable upright view of the chest. COMPARISON: CT Chest wo Cont 12/19/2019 1:11 PM FINDINGS: Tubes, catheters and devices: EKG leads are present overlying the chest. Lungs: Mild pulmonary hyperexpansion. Mild left lateral basilar subsegmental atelectasis. The lungs are otherwise clear bilaterally. The pulmonary vasculature is normal. Pleural space: No pleural effusion. No pneumothorax. Heart/Mediastinum: The heart is normal in size and contour. Mediastinum: Stable. Vasculature: Moderate aortic arch atherosclerotic calcification without ectasia. Bones/joints: Stable. IMPRESSION: 1. Mild pulmonary hyperexpansion. 2. Mild left lateral basilar subsegmental atelectasis.
[2020-10-10 07:55] LABS: CHLORIDE,CL 97 mmol/L (98-107); SODIUM,NA 132 mmol/L (136-145)
== END 2020-10-10 09:55 | disposition home or self-care (01) ==
LOC: DL.ED 06:46
DX: R00.0 Tachycardia, unspecified (principal); I48.91 Unspecified atrial fibrillation; I12.0 Hypertensive chronic kidney disease with stage 5 chronic kidney disease or end stage renal disease; N18.6 End stage renal disease; Z99.2 Dependence on renal dialysis; Z88.4 Allergy status to anesthetic agent; Z88.0 Allergy status to penicillin; Z79.899 Other long term (current) drug therapy; Z79.82 Long term (current) use of aspirin
CPT/HCPCS: 36415; 71045; 80053; 83735; 83880; 84484; 85025; 85610; 93005; 96374; 96376; 99283; 99285-25; J3490

== ENCOUNTER 2020-10-14 06:27 | Emergency (ER) | payer MEDICARE, BC ==
[2020-10-14 06:37] VITALS: BP 105/68; PULSE 135
[2020-10-14] MEDS ORDERED: Diltiazem 25 MG/5 ML SDV IVPUSH ONE ×2 (06:38→07:11)
--- NOTE | 2020-10-14 06:50 | EDM.PDOC ---
<Magda Singer Jaiden - Last Filed: 10/14/20 06:55> ED HPI GENERAL MEDICAL PROBLEM - General Chief Complaint: Cardiovascular Problem Stated Complaint: FAST HEART RATE Time Seen by Provider: 10/14/20 06:45 Source of Information: Reports: Patient History Limitations: Reports: No Limitations - History of Present Illness INITIAL COMMENTS - FREE TEXT/NARRATIVE: ED with c/o not feeling well, fast heart rate. Similar in past. Sen multiple times in past week. Ablation tentative on Sunday. Home peritoneal dialysis. Saw transition rn yesterday but did not mention. Onset 529. No chest pain. - Related Data Allergies Allergy/AdvReac Type Severity Reaction Status Date / Time lidocaine Allergy Rash Verified 10/14/20 06:33 Penicillins Allergy Cannot Verified 10/14/20 06:33 Remember Home Meds: Home Meds Metoprolol Succinate 200 mg PO BID 05/26/15 [History] [place]-3/DHA/Epa/Fish Oil [[place]-3 Fish Oil 1,000 MG Sfgl] 1,000 mg PO DAILY 09/25/16 [History] hydrALAZINE [Apresoline] 50 mg PO BID 09/25/16 [History] Sevelamer Carbonate 800 mg PO ASDIRECTED 06/05/20 [History] Acetaminophen [Tylenol] 650 mg PO Q6HR PRN 09/01/20 [History] Aspirin [Ecotrin EC] 81 mg PO DAILY 09/01/20 [History] Mupirocin Cream [Bactroban Crm] 1 applicful TOP DAILY PRN 09/01/20 [History] Zinc 50 mg PO DAILY 09/01/20 [History] amLODIPine Besylate [Norvasc] 10 mg PO DAILY 09/01/20 [History] atorvaSTATin [Lipitor] 10 mg PO DAILY 09/01/20 [History] calcitrioL [Rocaltrol] 0.25 mcg PO .M,T,W,R,F 09/01/20 [History] Triamcinolone Acetonide [Triamcinolone Acetonide 0.1% Oint] 1 applic TOP ASDIRECTED 10/10/20 [History] Past Medical History HEENT History: Reports: Impaired Vision Cardiovascular History: Reports: Afib, Hypertension Other Cardiovascular History: SVT Respiratory History: Reports: None Gastrointestinal History: Reports: Bowel Obstruction Genitourinary History: Reports: Acute Renal Failure, BPH, Chronic Renal Insuff iency, Dialysis, Peritoneal, Prostate Disorder, Other (See Below) Other Genitourinary History: "40% kidney function" Musculoskeletal History: Reports: None Neurological History: Reports: None Psychiatric History: Reports: Anxiety, Depression Endocrine/Metabolic History: Reports: None Hematologic History: Reports: Blood Transfusion(s), Other (See Below) Other Hematologic History: MONOCLONAL GAMMOPATHY Immunologic History: Reports: None Oncologic (Cancer) History: Reports: None Dermatologic History: Reports: Eczema, Other (See Below) Other Dermatologic History: HX OF ECEZEMA ON BILAT HANDS; REDDENED AREAS UNDER NICOTINE PATCHES - Infectious Disease History Infectious Disease History: Reports: Chicken Pox, Mumps - Past Surgical History Head Surgeries/Procedures: Reports: None HEENT Surgical History: Reports: None Cardiovascular Surgical History: Reports: None Respiratory Surgical History: Reports: None GI Surgical History: Reports: Hernia Repair/Other, Other (See Below) Other GI Surgeries/Procedures: SPLENECTOMY Male Surgical History: Reports: TURP-Transurethral Resection of Prostate Endocrine Surgical History: Reports: None Neurological Surgical History: Reports: None Musculoskeletal Surgical History: Reports: None Dermatological Surgical History: Reports: None Social & Family History - Family History Family Medical History: No Pertinent Family History - Tobacco Use Tobacco Use Status *Q: Current Every Day Tobacco User Years of Tobacco use: 50 Packs/Tins Daily: 0.5 - Caffeine Use Caffeine Use: Reports: Coffee - Recreational Drug Use Recreational Drug Use: No - Living Situation & Occupation Living situation: Reports: , with Family Occupation: Employed ED ROS GENERAL - Review of Systems Review Of Systems: Comprehensive ROS is negative, except as noted in HPI. ED EXAM, GENERAL - Physical Exam Exam: See Below Exam Limited By: No Limitations General Appearance: Alert, Anxious (mild), Mild Distress Eye Exam: Bilateral Eye: EOMI Ears: Hearing Loss (mild) Nose: Normal Inspection Throat/Mouth: Normal Voice Head: Atraumatic, Normocephalic Neck: Normal Inspection Respiratory/Chest: No Respiratory Distress Cardiovascular: Irregularly Irregular GI/Abdominal: Normal Bowel Sounds Neurological: Alert, Oriented, Normal Cognition Skin Exam: Warm, Dry, Intact, Pallor Departure - Departure Disposition: DC/Tfer to [facility] 02 Clinical Impression: Atrial fibrillation with RVR, Dialysis patient Forms: Interfacility Transfer EMTALA Care Plan Goals: Discussed the patient's history, examination, lab, EKG and treatments with Dr. Alonzo. Dr. Alonzo accepted the patient for continued evaluation and further management as an inpatient at [facility] in [place]. The patient will be transported by [facility]. Sepsis Event Note (ED) - Evaluation Sepsis Screening Result: No Definite Risk <Melo Núñez - Last Filed: 10/14/20 08:05> Course - Vital Signs Last Recorded V/S: Last Vital Signs Temp 36.6 C 10/14/20 06:33 Pulse 135 H 10/14/20 06:33 Resp 20 10/14/20 06:33 BP 105/68 10/14/20 06:33 Pulse Ox 99 10/14/20 06:33 - Orders/Labs/Meds Orders: Active Orders 24 hr Category Date Time Status EKG 12 Lead [EKG Documentation Completion] [RC] URGENT Care 10/14/20 06:38 Active Diltiazem 125 mg Med 10/14/20 07:45 Active Sodium Chloride 0.9% [Normal Saline] 125 ml IV ASDIRECTED Medication Orders Diltiazem HCl 125 mg/ Sodium (Chloride) 150 mls @ 5 mls/hr IV ASDIRECTED MINOO Labs: Laboratory Tests 10/14/20 10/14/20 10/14/20 Range/Units 06:42 06:42 06:42 WBC 14.3 H (5.0-10.0) 10^3/uL RBC 3.36 L (4.6-6.2) 10^6/uL Hgb 10.5 L (14.0-18.0) g/dL Hct 32.1 L (40.0-54.0) % MCV 95.5 (80-100) fL MCH 31.3 (27.0-34.0) pg MCHC 32.7 L (33.0-35.0) g/dL Plt Count 460 H (150-450) 10^3/uL Neut % (Auto) 63.7 (42.2-75.2) % Lymph % (Auto) 14.8 L (20.5-50.1) % [place] % (Auto) 12.7 H (2-8) % Eos % (Auto) 8.2 H (1.0-3.0) % Baso % (Auto) 0.6 (0.0-1.0) % PT 9.6 (9.0-12.0) SEC INR 1.0 (0.9-1.2) Sodium 135 L (136-145) mmol/L Potassium 4.1 (3.5-5.1) mmol/L Chloride 97 L (98-107) mmol/L Carbon Dioxide 23 (21-32) mmol/L Anion Gap 19.1 H (7-13) mEq/L BUN 41 H (7-18) mg/dL Creatinine 7.58 H* (0.70-1.30) mg/dL Est Cr Clr Drug Dosing 9.80 mL/min Estimated GFR (MDRD) 7 BUN/Creatinine Ratio 5.4 (No establ ref range) Glucose 151 H (74-99) mg/dL Calcium 9.4 (8.5-10.1) mg/dL Total Bilirubin 0.3 (0.2-1.0) mg/dL AST 12 L (15-37) U/L ALT 18 (16-63) U/L Alkaline Phosphatase 81 (46-116) U/L Troponin I < 0.017 (0.000-0.056) ng/mL Total Protein 8.2 (6.4-8.2) g/dL Albumin 2.8 L (3.4-5.0) g/dL Globulin 5.4 Albumin/Globulin Ratio 0.52 Meds: Medications Generic Name Dose Route Start Last Admin Trade Name Freq PRN Reason Stop Dose Admin Diltiazem HCl 125 mg/ Sodium 150 mls @ 5 mls/hr 10/14/20 07:45 Chloride IV ASDIRECTED MINOO Discontinued Medications Generic Name Dose Route Start Last Admin Trade Name Freq PRN Reason Stop Dose Admin Diltiazem HCl 15 mg 10/14/20 06:38 10/14/20 06:45 Diltiazem IVPUSH 10/14/20 06:39 15 mg ONETIME ONE Administration Diltiazem HCl 10 mg 10/14/20 07:11 10/14/20 07:20 Diltiazem IVPUSH 10/14/20 07:12 10 mg ONETIME ONE Administration Lorazepam 0.5 mg 10/14/20 07:46 Ativan PO 10/14/20 07:47 ONETIME ONE Departure - Departure Time of Disposition: 08:00 Reason for Transfer *Q: Other Condition: Fair Sepsis Event Note (ED) - Focused Exam Vital Signs: Vital Signs Temp Pulse Resp BP Pulse Ox 10/14/20 06:33 36.6 C 135 H 20 105/68 99 - My Orders Last 24 Hours: My Active Orders 10/14/20 07:45 Diltiazem 125 mg Sodium Chloride 0.9% [Normal Saline] 125 ml IV ASDIRECTED - Assessment/Plan Last 24 Hours: My Active Orders 10/14/20 07:45 Diltiazem 125 mg Sodium Chloride 0.9% [Normal Saline] 125 ml IV ASDIRECTED
[2020-10-14 07:09] LABS: ANION GAP 19.1 mEq/L (7-13); CHLORIDE,CL 97 mmol/L (98-107); SODIUM,NA 135 mmol/L (136-145)
[2020-10-14] MEDS ORDERED: Diltiazem 125 MG in Sodium Chloride 0.9% 125 ML IV SCH (07:45)
[2020-10-14] MEDS ORDERED: LORazepam 0.5 MG Tab PO ONE (07:46)
== END 2020-10-14 08:52 ==
LOC: DL.ED 06:27
DX: I48.91 Unspecified atrial fibrillation (principal); I12.9 Hypertensive chronic kidney disease with stage 1 through stage 4 chronic kidney disease, or unspecified chronic kidney disease; N18.9 Chronic kidney disease, unspecified; Z99.2 Dependence on renal dialysis; Z88.4 Allergy status to anesthetic agent; Z88.0 Allergy status to penicillin; Z79.899 Other long term (current) drug therapy; Z72.0 Tobacco use; Z20.822 Contact with and (suspected) exposure to COVID-19
CPT/HCPCS: 36415; 80053; 84484; 85025; 85610; 93005; 96365; 96376; 99283; 99285-25; A9270-GY; J3490; U0002

== ENCOUNTER 2021-01-13 11:49 | Emergency (ER) | payer MEDICARE, BC ==
--- NOTE | 2021-01-13 12:10 | EDM.PDOC ---
ED HPI GENERAL MEDICAL PROBLEM - General Chief Complaint: Abdominal Pain Stated Complaint: AMBULANCE Time Seen by Provider: 01/13/21 12:09 Source of Information: Reports: Patient, RN, RN Notes Reviewed History Limitations: Reports: No Limitations - History of Present Illness INITIAL COMMENTS - FREE TEXT/NARRATIVE: Patient is a 70-year-old male who presents to ER per [facility] ambulance service with complaint of abdominal pain. Patient does peritoneal dialysis at home on a daily basis. States he last ate his exchange at 08 30 today which was normal. After that he began having cloudy fluid from the exchange with his second exchange at 1030. Also began having abdominal pain, nausea, vomiting. Patient is obviously having chills while in the ER. He states he has not had a fever prior to now. Denies any diarrhea. Patient is somewhat lethargic. Onset: Today, Sudden - Related Data Allergies Allergy/AdvReac Type Severity Reaction Status Date / Time lidocaine Allergy Rash Verified 01/13/21 12:06 Penicillins Allergy Cannot Verified 01/13/21 12:06 Remember Home Meds: Home Meds Metoprolol Succinate 200 mg PO BID 05/26/15 [History] [place]-3/DHA/Epa/Fish Oil [[place]-3 Fish Oil 1,000 MG Sfgl] 1,000 mg PO DAILY 09/25/16 [History] hydrALAZINE [Apresoline] 50 mg PO BID 09/25/16 [History] Sevelamer Carbonate 800 mg PO ASDIRECTED 06/05/20 [History] Acetaminophen [Tylenol] 650 mg PO Q6HR PRN 09/01/20 [History] Aspirin [Ecotrin EC] 81 mg PO DAILY 09/01/20 [History] Mupirocin Cream [Bactroban Crm] 1 applicful TOP DAILY PRN 09/01/20 [History] Zinc 50 mg PO DAILY 09/01/20 [History] amLODIPine Besylate [Norvasc] 10 mg PO DAILY 09/01/20 [History] atorvaSTATin [Lipitor] 10 mg PO DAILY 09/01/20 [History] calcitrioL [Rocaltrol] 0.25 mcg PO .M,T,W,R,F 09/01/20 [History] Triamcinolone Acetonide [Triamcinolone Acetonide 0.1% Oint] 1 applic TOP ASDIRECTED 10/10/20 [History] Past Medical History HEENT History: Reports: Impaired Vision Cardiovascular History: Reports: Afib, Hypertension Other Cardiovascular History: SVT Respiratory History: Reports: None Gastrointestinal History: Reports: Bowel Obstruction Genitourinary History: Reports: Acute Renal Failure, BPH, Chronic Renal Insuffiency, Dialysis, Peritoneal, Prostate Disorder, Other (See Below) Other Genitourinary History: "40% kidney function" Musculoskeletal History: Reports: None Neurological History: Reports: None Psychiatric History: Reports: Anxiety, Depression Endocrine/Metabolic History: Reports: None Hematologic History: Reports: Blood Transfusion(s), Other (See Below) Other Hematologic History: MONOCLONAL GAMMOPATHY Immunologic History: Reports: None Oncologic (Cancer) History: Reports: None Dermatologic History: Reports: Eczema, Other (See Below) Other Dermatologic History: HX OF ECEZEMA ON BILAT HANDS; REDDENED AREAS UNDER NICOTINE PATCHES - Infectious Disease History Infectious Disease History: Reports: Chicken Pox, Mumps - Past Surgical History Head Surgeries/Procedures: Reports: None HEENT Surgical History: Reports: None Cardiovascular Surgical History: Reports: None Respiratory Surgical History: Reports: None GI Surgical History: Reports: Hernia Repair/Other, Other (See Below) Other GI Surgeries/Procedures: SPLENECTOMY Male Surgical History: Reports: TURP-Transurethral Resection of Prostate Endocrine Surgical History: Reports: None Neurological Surgical History: Reports: None Musculoskeletal Surgical History: Reports: None Dermatological Surgical History: Reports: None Social & Family History - Family History Family Medical History: No Pertinent Family History - Caffeine Use Caffeine Use: Reports: Coffee - Living Situation & Occupation Living situation: Reports: , with Family Occupation: Employed ED ROS GENERAL - Review of Systems Review Of Systems: Comprehensive ROS is negative, except as noted in HPI. ED EXAM, GI/ABD - Physical Exam Exam: See Below Exam Limited By: No Limitations General Appearance: Alert Eyes: Bilateral: Normal Appearance, EOMI Ears: Normal External Exam, Hearing Grossly Normal Nose: Normal Inspection Throat/Mouth: Normal Inspection, Normal Voice, No Airway Compromise Head: Atraumatic, Normocephalic Neck: Normal Inspection, Supple, Non-Tender, Full Range of Motion Respiratory/Chest: No Respiratory Distress, Lungs Clear, Normal Breath Sounds, No Accessory Muscle Use, Chest Non-Tender Cardiovascular: Normal Peripheral Pulses, Regular Rate, Rhythm, No Edema, No Gallop, No JVD, No Murmur, No Rub GI/Abdominal Exam: Normal Bowel Sounds, No Organomegaly, Distended, Tender (gene ralized) (Male) Exam: Deferred Rectal (Males) Exam: Deferred Back Exam: Normal Inspection, Full Range of Motion, NT Extremities: Normal Inspection, Normal Range of Motion, Non-Tender, Normal Capillary Refill, No Pedal Edema Neurological: Alert, Oriented, CN II-XII Intact, Normal Cognition, Normal Gait, Normal Reflexes, No Motor/Sensory Deficits, Slow to Respond, Other (slightly lethargic) Psychiatric: Normal Affect, Normal Mood Skin Exam: Warm, Dry, Intact, Normal Color, No Rash Lymphatic: No Adenopathy Course - Vital Signs Last Recorded V/S: Last Vital Signs Temp 97.5 F 01/13/21 12:07 Pulse 74 01/13/21 12:07 Resp 18 01/13/21 12:07 BP 138/69 01/13/21 12:07 Pulse Ox 98 01/13/21 12:07 - Orders/Labs/Meds Orders: Active Orders 24 hr Category Date Time Status CORONAVIRUS COVID-19 LEVAR [MOLEC] Stat Lab 01/13/21 13:32 Ordered CULTURE BLOOD [BC] Stat Lab 01/13/21 12:49 Received CULTURE BLOOD [BC] Stat Lab 01/13/21 13:10 Received Sodium Chloride 0.9% [Normal Saline] 1,000 ml Med 01/13/21 13:18 Active IV .BOLUS Blood Culture x2 Reflex Set [OM.PC] Stat Oth 01/13/21 12:28 Ordered Medication Orders Sodium Chloride (Normal Saline) 1,000 mls @ 999 mls/hr IV .BOLUS ONE Stop: 01/13/21 14:18 Last Admin: 01/13/21 13:24 Dose: 999 mls/hr Documented by: LORI Labs: Laboratory Tests 01/13/21 01/13/21 01/13/21 Range/Units 12:06 12:06 12:06 WBC 20.4 H (5.0-10.0) 10^3/uL RBC 3.24 L (4.6-6.2) 10^6/uL Hgb 10.0 L (14.0-18.0) g/dL Hct 31.3 L (40.0-54.0) % MCV 96.6 (80-100) fL MCH 30.9 (27.0-34.0) pg MCHC 31.9 L (33.0-35.0) g/dL Plt Count 443 (150-450) 10^3/uL Neut % (Auto) 79.9 H (42.2-75.2) % Lymph % (Auto) 7.6 L (20.5-50.1) % [place] % (Auto) 5.3 (2-8) % Eos % (Auto) 7.0 H (1.0-3.0) % Baso % (Auto) 0.2 (0.0-1.0) % Sodium 133 L (136-145) mmol/L Potassium 3.3 L (3.5-5.1) mmol/L Chloride 95 L (98-107) mmol/L Carbon Dioxide 28 (21-32) mmol/L Anion Gap 13.3 H (7-13) mEq/L BUN 40 H (7-18) mg/dL Creatinine 7.86 H* (0.70-1.30) mg/dL Est Cr Clr Drug Dosing 9.45 mL/min Estimated GFR (MDRD) 7 BUN/Creatinine Ratio 5.1 (No establ ref range) Glucose 154 H (70-99) mg/dL Lactic Acid 2.1 H* (0.4-2.0) mmol/L Calcium 8.6 (8.5-10.1) mg/dL Total Bilirubin 0.3 (0.2-1.0) mg/dL AST 9 L (15-37) U/L ALT 19 (16-63) U/L Alkaline Phosphatase 67 (46-116) U/L C-Reactive Protein (0.0-0.9) mg/dL Total Protein 8.0 (6.4-8.2) g/dL Albumin 2.7 L (3.4-5.0) g/dL Globulin 5.3 Albumin/Globulin Ratio 0.51 04/29/21 Range/Units 12:06 WBC (5.0-10.0) 10^3/uL RBC (4.6-6.2) 10^6/uL Hgb (14.0-18.0) g/dL Hct (40.0-54.0) % MCV (80-100) fL MCH (27.0-34.0) pg MCHC (33.0-35.0) g/dL Plt Count (150-450) 10^3/uL Neut % (Auto) (42.2-75.2) % Lymph % (Auto) (20.5-50.1) % [place] % (Auto) (2-8) % Eos % (Auto) (1.0-3.0) % Baso % (Auto) (0.0-1.0) % Sodium (136-145) mmol/L Potassium (3.5-5.1) mmol/L Chloride (98-107) mmol/L Carbon Dioxide (21-32) mmol/L Anion Gap (7-13) mEq/L BUN (7-18) mg/dL Creatinine (0.70-1.30) mg/dL Est Cr Clr Drug Dosing mL/min Estimated GFR (MDRD) BUN/Creatinine Ratio (No establ ref range) Glucose (70-99) mg/dL Lactic Acid (0.4-2.0) mmol/L Calcium (8.5-10.1) mg/dL Total Bilirubin (0.2-1.0) mg/dL AST (15-37) U/L ALT (16-63) U/L Alkaline Phosphatase (46-116) U/L C-Reactive Protein 0.2 (0.0-0.9) mg/dL Total Protein (6.4-8.2) g/dL Albumin (3.4-5.0) g/dL Globulin Albumin/Globulin Ratio Meds: Medications Generic Name Dose Route Start Last Admin Trade Name Freq PRN Reason Stop Dose Admin Sodium Chloride 1,000 mls @ 999 mls/hr 01/13/21 13:18 01/13/21 13:24 Normal Saline IV 01/13/21 14:18 999 mls/hr .BOLUS ONE Administration - Re-Assessments/Exams Free Text/Narrative Re-Assessment/Exam: 01/13/21 13:59 Discussed patient case with Dr. Gipson who agreed to accept the patient for transfer to [facility]. Departure - Departure Time of Disposition: 14:00 Disposition: DC/Tfer to [facility] 02 Condition: Fair Clinical Impression: Peritonitis - Discharge Information *PRESCRIPTION DRUG MONITORING PROGRAM REVIEWED*: No *COPY OF PRESCRIPTION DRUG MONITORING REPORT IN PATIENT ARUN: No Forms: ED Department Discharge, Interfacility Transfer EMTALA Sepsis Event Note (ED) - Focused Exam Vital Signs: Vital Signs Temp Pulse Resp BP Pulse Ox 01/13/21 12:07 97.5 F 74 18 138/69 98 - My Orders Last 24 Hours: My Active Orders 01/13/21 12:28 Blood Culture x2 Reflex Set [OM.PC] Stat 01/13/21 12:49 CULTURE BLOOD [BC] Stat 01/13/21 13:10 CULTURE BLOOD [BC] Stat 01/13/21 13:18 Sodium Chloride 0.9% [Normal Saline] 1,000 ml IV .BOLUS 01/13/21 13:32 CORONAVIRUS COVID-19 LEVRA [MOLEC] Stat - Assessment/Plan Last 24 Hours: My Active Orders 01/13/21 12:28 Blood Culture x2 Reflex Set [OM.PC] Stat 01/13/21 12:49 CULTURE BLOOD [BC] Stat 01/13/21 13:10 CULTURE BLOOD [BC] Stat 01/13/21 13:18 Sodium Chloride 0.9% [Normal Saline] 1,000 ml IV .BOLUS 01/13/21 13:32 CORONAVIRUS COVID-19 LEVAR [MOLEC] Stat
[2021-01-13 12:16] VITALS: BP 138/69; PULSE 74
[2021-01-13 12:46] LABS: ANION GAP 13.3 mEq/L (7-13)
[2021-01-13] MEDS ORDERED: Sodium Chloride 0.9% 1,000 ML IV ONE (13:18)
[2021-01-13] MEDS ORDERED: fentaNYL 100 MCG/2 ML SDV IVPUSH ONE (14:03)
== END 2021-01-13 14:20 ==
LOC: DL.ED 11:49
DX: K65.9 Peritonitis, unspecified (principal); I48.91 Unspecified atrial fibrillation; I12.9 Hypertensive chronic kidney disease with stage 1 through stage 4 chronic kidney disease, or unspecified chronic kidney disease; N18.9 Chronic kidney disease, unspecified; Z88.4 Allergy status to anesthetic agent; Z88.0 Allergy status to penicillin; Z20.822 Contact with and (suspected) exposure to COVID-19; Z79.82 Long term (current) use of aspirin
CPT/HCPCS: 36415; 80053; 83605; 85025; 86140; 87040; 96374; 99284; 99285; J3010; J7030; U0002

== ENCOUNTER 2021-07-27 06:37 | Emergency (ER) | payer MEDICARE, BC ==
[2021-07-27 15:11] VITALS: BP 120/65; PULSE 86
--- NOTE | 2021-07-27 15:13 | EDM.PDOC ---
ED HPI GENERAL MEDICAL PROBLEM - General Chief Complaint: Genitourinary Problem Stated Complaint: PLUGGED CATHETER / SEVERE PAIN Time Seen by Provider: 07/27/21 15:10 Source of Information: Reports: Patient, Old Records, RN, RN Notes Reviewed History Limitations: Reports: No Limitations - History of Present Illness INITIAL COMMENTS - FREE TEXT/NARRATIVE: Pt presents to ER with c/o that his Mac catheter is plugged with a blood clot, and he feels his bladder is over full and becoming painful. Onset: Today Duration: Constant, Getting Worse Location: Reports: Abdomen Quality: Reports: Same as Previous Episode Severity: Severe Improves with: Reports: None Worsens with: Reports: None Associated Symptoms: Reports: No Other Symptoms - Related Data Allergies Allergy/AdvReac Type Severity Reaction Status Date / Time lidocaine Allergy Rash Verified 07/27/21 06:56 Penicillins Allergy Cannot Verified 07/27/21 06:56 Remember Home Meds: Home Meds Metoprolol Succinate 200 mg PO BID 05/26/15 [History] Margie-3/DHA/Epa/Fish Oil [Margie-3 Fish Oil 1,000 MG Sfgl] 1,000 mg PO DAILY 09/25/16 [History] hydrALAZINE [Apresoline] 50 mg PO BID 09/25/16 [History] Sevelamer Carbonate 800 mg PO ASDIRECTED 06/05/20 [History] Acetaminophen [Tylenol] 650 mg PO Q6HR PRN 09/01/20 [History] Aspirin [Ecotrin EC] 81 mg PO DAILY 09/01/20 [History] Mupirocin Cream [Bactroban Crm] 1 applicful TOP DAILY PRN 09/01/20 [History] Zinc 50 mg PO DAILY 09/01/20 [History] amLODIPine Besylate [Norvasc] 10 mg PO DAILY 09/01/20 [History] atorvaSTATin [Lipitor] 10 mg PO DAILY 09/01/20 [History] calcitrioL [Rocaltrol] 0.25 mcg PO .M,T,W,R,F 09/01/20 [History] Triamcinolone Acetonide [Triamcinolone Acetonide 0.1% Oint] 1 applic TOP ASDIRECTED 10/10/20 [History] Past Medical History HEENT History: Reports: Impaired Vision Cardiovascular History: Reports: Afib, Hypertension Other Cardiovascular History: SVT Respiratory History: Reports: None Gastrointestinal History: Reports: Bowel Obstruction Genitourinary History: Reports: Acute Renal Failure, BPH, Chronic Renal Insuffiency, Dialysis, Peritoneal, Prostate Disorder, Other (See Below) Other Genitourinary History: "40% kidney function" Musculoskeletal History: Reports: None Neurological History: Reports: None Psychiatric History: Reports: Anxiety, Depression Endocrine/Metabolic History: Reports: None Hematologic History: Reports: Blood Transfusion(s), Other (See Below) Other Hematologic History: MONOCLONAL GAMMOPATHY Immunologic History: Reports: None Oncologic (Cancer) History: Reports: None Dermatologic History: Reports: Eczema, Other (See Below) Other Dermatologic History: HX OF ECEZEMA ON BILAT HANDS; REDDENED AREAS UNDER NICOTINE PATCHES - Infectious Disease History Infectious Disease History: Reports: Chicken Pox, Mumps - Past Surgical History Head Surgeries/Procedures: Reports: None HEENT Surgical History: Reports: None Cardiovascular Surgical History: Reports: None Respiratory Surgical History: Reports: None GI Surgical History: Reports: Hernia Repair/Other, Other (See Below) Other GI Surgeries/Procedures: SPLENECTOMY Male Surgical History: Reports: TURP-Transurethral Resection of Prostate Endocrine Surgical History: Reports: None Neurological Surgical History: Reports: None Musculoskeletal Surgical History: Reports: None Dermatological Surgical History: Reports: None Social & Family History - Family History Family Medical History: No Pertinent Family History - Caffeine Use Caffeine Use: Reports: Coffee - Living Situation & Occupation Living situation: Reports: , with Spouse Occupation: Employed ED ROS GENERAL - Review of Systems Review Of Systems: Comprehensive ROS is negative, except as noted in HPI. ED EXAM, RENAL/ - Physical Exam Exam: See Below Exam Limited By: No Limitations General Appearance: Alert, WD/WN, No Apparent Distress Nose: Normal Inspection, No Blood Throat/Mouth: Normal Lips, Normal Voice, No Airway Compromise Head: Atraumatic, Normocephalic Neck: Normal Inspection Respiratory/Chest: No Respiratory Distress, Lungs Clear Cardiovascular: Regular Rate, Rhythm GI/Abdominal: Normal Bowel Sounds, Soft, Tender (suprapubic) (Male) Exam: Suprapubic Fullness Back Exam: Normal Inspection Extremities: Normal Inspection Neurological: Alert, Oriented, No Motor/Sensory Deficits Psychiatric: Normal Mood Skin Exam: Warm, Dry, Intact, Normal Color, No Rash Course - Vital Signs Last Recorded V/S: Last Vital Signs Temp 97.5 F 11/10/21 15:10 Pulse 86 07/27/21 15:10 Resp 20 07/27/21 15:10 BP 120/65 07/27/21 15:10 Pulse Ox 96 07/27/21 15:10 - Orders/Labs/Meds Orders: Active Orders 24 hr Category Date Time Status Peripheral IV Care [RC] . DIRECTED Care 07/27/21 16:41 Active Sodium Chloride 0.9% [Normal Saline] 1,000 ml Med 07/27/21 18:25 Active IV .BOLUS Sodium Chloride 0.9% [Saline Flush] Med 07/27/21 16:41 Active 10 ml FLUSH ASDIRECTED PRN Peripheral IV Insertion Adult [OM.PC] Stat Oth 07/27/21 16:40 Ordered Medication Orders Sodium Chloride (Normal Saline) 1,000 mls @ 999 mls/hr IV .BOLUS ONE Stop: 07/27/21 19:25 Sodium Chloride (Sodium Chloride 0.9% 10 Ml Syringe) 10 ml FLUSH ASDIRECTED PRN PRN Reason: Keep Vein Open Labs: Laboratory Tests 07/27/21 07/27/21 07/27/21 Range/Units 16:51 17:28 17:28 WBC 16.5 H (5.0-10.0) 10^3/uL RBC 2.69 L (4.6-6.2) 10^6/uL Hgb 8.2 L D (14.0-18.0) g/dL Hct 26.0 L (40.0-54.0) % MCV 96.7 (80-100) fL MCH 30.5 (27.0-34.0) pg MCHC 31.5 L (33.0-35.0) g/dL Plt Count 474 H (150-450) 10^3/uL Neut % (Auto) 75.8 H (42.2-75.2) % Lymph % (Auto) 11.6 L (20.5-50.1) % [place] % (Auto) 10.6 H (2-8) % Eos % (Auto) 1.6 (1.0-3.0) % Baso % (Auto) 0.4 (0.0-1.0) % PT 10.3 (9.0-12.0) SEC INR 1.0 (0.9-1.2) APTT 22.9 (22.0-34.0) SEC Sodium (136-145) mmol/L Potassium (3.5-5.1) mmol/L Chloride (98-107) mmol/L Carbon Dioxide (21-32) mmol/L Anion Gap (7-13) mEq/L BUN (7-18) mg/dL Creatinine (0.70-1.30) mg/dL Est Cr Clr Drug Dosing Estimated GFR (MDRD) BUN/Creatinine Ratio (No establ ref range) Glucose (70-99) mg/dL Calcium (8.5-10.1) mg/dL Total Bilirubin (0.2-1.0) mg/dL AST (15-37) U/L ALT (16-63) U/L Alkaline Phosphatase (46-116) U/L Total Protein (6.4-8.2) g/dL Albumin (3.4-5.0) g/dL Globulin Albumin/Globulin Ratio SARS-CoV-2 RNA (LEVAR) Negative (NEGATIVE) 07/27/21 Range/Units 17:28 WBC (5.0-10.0) 10^3/uL RBC (4.6-6.2) 10^6/uL Hgb (14.0-18.0) g/dL Hct (40.0-54.0) % MCV (80-100) fL MCH (27.0-34.0) pg MCHC (33.0-35.0) g/dL Plt Count (150-450) 10^3/uL Neut % (Auto) (42.2-75.2) % Lymph % (Auto) (20.5-50.1) % [place] % (Auto) (2-8) % Eos % (Auto) (1.0-3.0) % Baso % (Auto) (0.0-1.0) % PT (9.0-12.0) SEC INR (0.9-1.2) APTT (22.0-34.0) SEC Sodium 133 L (136-145) mmol/L Potassium 4.5 (3.5-5.1) mmol/L Chloride 96 L (98-107) mmol/L Carbon Dioxide 25 (21-32) mmol/L Anion Gap 16.5 H (7-13) mEq/L BUN 32 H (7-18) mg/dL Creatinine 8.32 H* (0.70-1.30) mg/dL Est Cr Clr Drug Dosing TNP Estimated GFR (MDRD) 6 BUN/Creatinine Ratio 3.8 (No establ ref range) Glucose 118 H (70-99) mg/dL Calcium 9.1 (8.5-10.1) mg/dL Total Bilirubin 0.4 (0.2-1.0) mg/dL AST 8 L (15-37) U/L ALT 12 L (16-63) U/L Alkaline Phosphatase 73 (46-116) U/L Total Protein 8.0 (6.4-8.2) g/dL Albumin 2.6 L (3.4-5.0) g/dL Globulin 5.4 Albumin/Globulin Ratio 0.48 SARS-CoV-2 RNA (LEVAR) (NEGATIVE) Meds: Medications Generic Name Dose Route Start Last Admin Trade Name Freq PRN Reason Stop Dose Admin Sodium Chloride 1,000 mls @ 999 mls/hr 07/27/21 18:25 Normal Saline IV 07/27/21 19:25 .BOLUS ONE Sodium Chloride 10 ml 07/27/21 16:41 Sodium Chloride 0.9% 10 Ml Syringe FLUSH ASDIRECTED PRN Keep Vein Open Discontinued Medications Generic Name Dose Route Start Last Admin Trade Name Freq PRN Reason Stop Dose Admin Hydrocodone Bitart/Acetaminophen 1 tab 07/27/21 15:35 07/27/21 15:45 Acetaminophen/Hydrocodone 325-5 Mg Tab PO 07/27/21 15:36 1 tab ONETIME ONE Administration Hydromorphone HCl 1 mg 07/27/21 16:41 Hydromorphone 1 Mg/Ml Syringe IVPUSH 07/27/21 16:42 ONETIME ONE Ondansetron HCl 4 mg 07/27/21 16:41 Ondansetron 4 Mg/2 Ml Sdv IV 07/27/21 16:42 ONETIME ONE - Re-Assessments/Exams Free Text/Narrative Re-Assessment/Exam: 07/27/21 15:11 Mac cath. removed and replaced with new larger catheter by Mirna Abad RN. Clots continue to block the new catheter. Continuous bladder irrigation is carried out. Plan to admit pt for catheter care and monitoring of blood loss, Hgb 8.2. Departure - Departure Time of Disposition: 18:40 (admit to Dr. Alonzo) Disposition: Admitted As Inpatient 67 Condition: Good Clinical Impression: Hematuria syndrome Obstructed Mac catheter Qualifiers: Encounter type: initial encounter Qualified Code(s): T83.091A - Other mechanical complication of indwelling urethral catheter, initial encounter Anemia Qualifiers: Anemia type: unspecified type Qualified Code(s): D64.9 - Anemia, unspecified - Discharge Information *PRESCRIPTION DRUG MONITORING PROGRAM REVIEWED*: No *COPY OF PRESCRIPTION DRUG MONITORING REPORT IN PATIENT ARUN: No Forms: ED Department Discharge Sepsis Event Note (ED) - Focused Exam Vital Signs: Vital Signs Temp Pulse Resp BP Pulse Ox 07/27/21 15:10 97.5 F 86 20 120/65 96 - My Orders Last 24 Hours: My Active Orders 07/27/21 16:40 Peripheral IV Insertion Adult [OM.PC] Stat 07/27/21 16:41 Peripheral IV Care [RC] . DIRECTED Sodium Chloride 0.9% [Saline Flush] 10 ml FLUSH ASDIRECTED PRN 07/27/21 18:25 Sodium Chloride 0.9% [Normal Saline] 1,000 ml IV .BOLUS - Assessment/Plan Last 24 Hours: My Active Orders 07/27/21 16:40 Peripheral IV Insertion Adult [OM.PC] Stat 07/27/21 16:41 Peripheral IV Care [RC] . DIRECTED Sodium Chloride 0.9% [Saline Flush] 10 ml FLUSH ASDIRECTED PRN 07/27/21 18:25 Sodium Chloride 0.9% [Normal Saline] 1,000 ml IV .BOLUS
[2021-07-27] MEDS ORDERED: Acetaminophen/HYDROcodone 325-5 MG Tab PO ONE (15:35)
[2021-07-27] MEDS ORDERED: Sodium Chloride 0.9% 10 ML Syringe FLUSH PRN (16:41)
[2021-07-27] MEDS ORDERED: HYDROmorphone 1 MG/ML Syringe IVPUSH ONE ×2 (16:41→19:28)
[2021-07-27] MEDS ORDERED: Ondansetron 4 MG/2 ML SDV IV ONE (16:41)
[2021-07-27] MEDS ORDERED: Sodium Chloride 0.9% 1,000 ML IV ONE (18:25)
[2021-07-27] MEDS ORDERED: HYDROmorphone 1 MG/ML Syringe ONE (19:43)
--- NOTE | 2021-08-03 09:06 | EDM.PDOC ---
ED HPI GENERAL MEDICAL PROBLEM - General Chief Complaint: Genitourinary Problem Stated Complaint: PLUGGED UP AND URINATING BLOOD [id number] Time Seen by Provider: 07/27/21 07:00 Source of Information: Reports: Patient, RN, RN Notes Reviewed History Limitations: Reports: No Limitations - History of Present Illness INITIAL COMMENTS - FREE TEXT/NARRATIVE: Pt presents to ER with c/o inability to pass his urine, with several days of bloody urine with clots and weak stream. Admits to severe lower abdominal pain and pressure. Pt has ESRD on peritoneal dialysis, but still makes urine. Denies fever, chills, or flank pain. His dialysis run off has been clear. Pt reports that he has had urinary outlet obstruction in the past and had to have a catheter for a while, but has been voiding good this past year. Duration: Constant Location: Reports: Abdomen Quality: Reports: Ache, Pressure, Same as Previous Episode Severity: Severe Improves with: Reports: None Worsens with: Reports: None Associated Symptoms: Reports: No Other Symptoms - Related Data Allergies Allergy/AdvReac Type Severity Reaction Status Date / Time lidocaine Allergy Rash Verified 07/27/21 06:56 Penicillins Allergy Cannot Verified 07/27/21 06:56 Remember Home Meds: Home Meds Oxford-3/DHA/Epa/Fish Oil [Oxford-3 Fish Oil 1,000 MG Sfgl] 1,000 mg PO DAILY [History] hydrALAZINE [Apresoline] 50 mg PO BID 09/25/16 [History] Sevelamer Carbonate 800 mg PO ASDIRECTED 06/05/20 [History] Acetaminophen [Tylenol] 650 mg PO Q6HR PRN 09/01/20 [History] Mupirocin Cream [Bactroban Crm] 1 applicful TOP DAILY PRN 09/01/20 [History] Zinc 50 mg PO DAILY 09/01/20 [History] amLODIPine Besylate [Norvasc] 10 mg PO DAILY 09/01/20 [History] atorvaSTATin [Lipitor] 10 mg PO DAILY 09/01/20 [History] calcitrioL [Rocaltrol] 0.25 mcg PO .M,T,W,R,F 09/01/20 [History] Sodium Bicarbonate 650 mg PO BID 07/28/21 [History] Tamsulosin [Flomax] 0.4 mg PO DAILY 07/28/21 [History] Albuterol/Ipratropium [DuoNeb 3.0-0.5 MG/3 ML] 3 ml NEB Q4HRRT PRN neb 07/31/21 [Rx] Albuterol/Ipratropium [DuoNeb 3.0-0.5 MG/3 ML] 3 ml NEB Q6HRRT neb 07/31/21 [Rx] Furosemide [Lasix] 40 mg IVPUSH Q8H vial 07/31/21 [Rx] Iron Polysaccharides Complex [Ferrex 150] 150 mg PO DAILY cap 07/31/21 [Rx] Levofloxacin/Dextrose 5%-Water [Levaquin in D5W 500 MG/100 ML] 500 mg IV Q48H bag 07/31/21 [Rx] Metoprolol Tartrate 150 mg PO DAILY #30 tablet 07/31/21 [Rx] Ondansetron [Zofran ODT] 4 mg PO Q6H PRN tab.dis 07/31/21 [Rx] Pantoprazole [ProTONIX IV] 40 mg IVPUSH Q12H vial 07/31/21 [Rx] Sucralfate [Carafate] 1 gm PO QIDACANDBED cup 07/31/21 [Rx] oxyCODONE 5 mg PO Q6H PRN tablet 07/31/21 [Rx] Past Medical History HEENT History: Reports: Impaired Vision Cardiovascular History: Reports: Afib, Hypertension Other Cardiovascular History: SVT Respiratory History: Reports: None Gastrointestinal History: Reports: Bowel Obstruction Genitourinary History: Reports: Acute Renal Failure, BPH, Chronic Renal Insuffiency, Dialysis, Peritoneal, Prostate Disorder, Other (See Below) Other Genitourinary History: "40% kidney function" Musculoskeletal History: Reports: None Neurological History: Reports: None Psychiatric History: Reports: Anxiety, Depression Endocrine/Metabolic History: Reports: None Hematologic History: Reports: Blood Transfusion(s), Other (See Below) Other Hematologic History: MONOCLONAL GAMMOPATHY Immunologic History: Reports: None Oncologic (Cancer) History: Reports: None Dermatologic History: Reports: Eczema, Other (See Below) Other Dermatologic History: HX OF ECEZEMA ON BILAT HANDS; REDDENED AREAS UNDER NICOTINE PATCHES - Infectious Disease History Infectious Disease History: Reports: Chicken Pox, Mumps - Past Surgical History Head Surgeries/Procedures: Reports: None HEENT Surgical History: Reports: None Cardiovascular Surgical History: Reports: None Respiratory Surgical History: Reports: None GI Surgical History: Reports: Hernia Repair/Other, Other (See Below) Other GI Surgeries/Procedures: SPLENECTOMY Male Surgical History: Reports: TURP-Transurethral Resection of Prostate Endocrine Surgical History: Reports: None Neurological Surgical History: Reports: None Musculoskeletal Surgical History: Reports: None Dermatological Surgical History: Reports: None Social & Family History - Family History Family Medical History: No Pertinent Family History - Tobacco Use Tobacco Use Status *Q: Current Every Day Tobacco User Years of Tobacco use: 55 Packs/Tins Daily: 0.5 - Caffeine Use Caffeine Use: Reports: Coffee - Recreational Drug Use Recreational Drug Use: No - Living Situation & Occupation Living situation: Reports: , with Spouse Occupation: Employed ED ROS GENERAL - Review of Systems Review Of Systems: Comprehensive ROS is negative, except as noted in HPI. ED EXAM, RENAL/ - Physical Exam Exam: See Below Exam Limited By: No Limitations General Appearance: Alert, Mild Distress (Due to pain) Throat/Mouth: Normal Voice Head: Atraumatic, Normocephalic Respiratory/Chest: No Respiratory Distress Cardiovascular: Regular Rate, Rhythm, Tachycardia GI/Abdominal: Normal Bowel Sounds, Soft, Tender (Suprapubic tenderness and firm but not distended). No: Guarding, Rigid, Rebound (Male) Exam: Suprapubic Fullness Back Exam: Normal Inspection. No: CVA Tenderness (L), CVA Tenderness (R) Extremities: Normal Inspection Neurological: Alert, Oriented, No Motor/Sensory Deficits Psychiatric: Normal Mood Skin Exam: Warm, Dry, Intact, Normal Color, No Rash Course - Vital Signs Last Recorded V/S: Last Vital Signs Temp 97.5 F 07/27/21 15:10 Pulse 86 07/27/21 15:10 Resp 20 07/27/21 15:10 BP 120/65 07/27/21 15:10 Pulse Ox 96 07/27/21 15:10 - Orders/Labs/Meds Labs: Laboratory Tests 07/27/21 07/27/21 07/27/21 Range/Units 07:20 16:51 17:28 WBC Cancelled Corrected WBC Cancelled RBC Cancelled Hgb Cancelled Hct Cancelled MCV Cancelled MCH Cancelled MCHC Cancelled Plt Count Cancelled Neut % (Auto) Cancelled Lymph % (Auto) Cancelled [place] % (Auto) Cancelled Eos % (Auto) Cancelled Baso % (Auto) Cancelled Add Manual Diff Cancelled PT INR APTT Sodium Potassium Chloride Carbon Dioxide Anion Gap BUN Creatinine Est Cr Clr Drug Dosing Estimated GFR (MDRD) BUN/Creatinine Ratio Glucose Calcium Total Bilirubin AST ALT Alkaline Phosphatase Total Protein Albumin Globulin Albumin/Globulin Ratio Urine Color Red (YELLOW) Urine Appearance Cloudy (CLEAR) Urine pH 8.5 (5.0-9.0) Ur Specific [place] 1.020 (1.005-1.030) Urine Protein >=300 H (NEGATIVE) Urine Glucose (UA) 100 H (NEGATIVE) Urine Ketones 15 H (NEGATIVE) Urine Occult Blood Large H (NEGATIVE) Urine Nitrite Positive H (NEGATIVE) Urine Bilirubin Moderate H (NEGATIVE) Urine Urobilinogen 1.0 (0.2-1.0) mg/dL Ur Leukocyte Esterase Large H (NEGATIVE) Urine RBC Packed H (0-5) /HPF Urine WBC 10-20 H (0-5/HPF) /HPF Ur Epithelial Cells Not seen (NOT SEEN) /HPF Urine Bacteria Not seen (0-FEW/HPF) /HPF Urine Mucus Not seen (NOT SEEN) /LPF SARS-CoV-2 RNA (LEVAR) Cancelled 07/27/21 07/27/21 Range/Units 17:28 17:28 WBC Corrected WBC RBC Hgb Hct MCV MCH MCHC Plt Count Neut % (Auto) Lymph % (Auto) [place] % (Auto) Eos % (Auto) Baso % (Auto) Add Manual Diff PT Cancelled INR Cancelled APTT Cancelled Sodium Cancelled Potassium Cancelled Chloride Cancelled Carbon Dioxide Cancelled Anion Gap Cancelled BUN Cancelled Creatinine Cancelled Est Cr Clr Drug Dosing Cancelled Estimated GFR (MDRD) Cancelled BUN/Creatinine Ratio Cancelled Glucose Cancelled Calcium Cancelled Total Bilirubin Cancelled AST Cancelled ALT Cancelled Alkaline Phosphatase Cancelled Total Protein Cancelled Albumin Cancelled Globulin Cancelled Albumin/Globulin Ratio Cancelled Urine Color (YELLOW) Urine Appearance (CLEAR) Urine pH (5.0-9.0) Ur Specific [place] (1.005-1.030) Urine Protein (NEGATIVE) Urine Glucose (UA) (NEGATIVE) Urine Ketones (NEGATIVE) Urine Occult Blood (NEGATIVE) Urine Nitrite (NEGATIVE) Urine Bilirubin (NEGATIVE) Urine Urobilinogen (0.2-1.0) mg/dL Ur Leukocyte Esterase (NEGATIVE) Urine RBC (0-5) /HPF Urine WBC (0-5/HPF) /HPF Ur Epithelial Cells (NOT SEEN) /HPF Urine Bacteria (0-FEW/HPF) /HPF Urine Mucus (NOT SEEN) /LPF SARS-CoV-2 RNA (LEVAR) Meds: Medications Discontinued Medications Generic Name Dose Route Start Last Admin Trade Name Freq PRN Reason Stop Dose Admin Hydrocodone Bitart/Acetaminophen 1 tab 07/27/21 15:35 Acetaminophen/Hydrocodone 325-5 Mg Tab PO 07/27/21 15:36 ONETIME ONE Hydromorphone HCl 1 mg 07/27/21 16:41 Hydromorphone 1 Mg/Ml Syringe IVPUSH 07/27/21 16:42 ONETIME ONE Hydromorphone HCl 1 mg 07/27/21 19:28 Hydromorphone 1 Mg/Ml Syringe IVPUSH 07/27/21 19:29 ONETIME ONE Hydromorphone HCl Confirm 07/27/21 19:43 Hydromorphone 1 Mg/Ml Syringe Administered 07/27/21 19:44 Dose 1 mg .ROUTE .STK-MED ONE Sodium Chloride 1,000 mls @ 999 mls/hr 07/27/21 18:25 Normal Saline IV 07/27/21 19:25 .BOLUS ONE Ondansetron HCl 4 mg 07/27/21 16:41 Ondansetron 4 Mg/2 Ml Sdv IV 07/27/21 16:42 ONETIME ONE Sodium Chloride 10 ml 07/27/21 16:41 Sodium Chloride 0.9% 10 Ml Syringe FLUSH ASDIRECTED PRN Keep Vein Open - Re-Assessments/Exams Free Text/Narrative Re-Assessment/Exam: 07/27/21 08:16 Pt feels significant relief following placement of Mac catheter. Plan to d/c pt home with the catheter to f/u in clinic with his PCP or taxonomist in the next 3 to 5 days. Departure - Departure Time of Disposition: 08:16 Disposition: Home, Self-Care 01 Condition: Good Clinical Impression: Hematuria syndrome Obstructed Mac catheter Qualifiers: Encounter type: subsequent encounter Qualified Code(s): T83.091D - Other mechanical complication of indwelling urethral catheter, subsequent encounter Anemia Qualifiers: Anemia type: iron deficiency Iron deficiency anemia type: chronic blood loss Qualified Code(s): D50.0 - Iron deficiency anemia secondary to blood loss (chronic) - Discharge Information *PRESCRIPTION DRUG MONITORING PROGRAM REVIEWED*: No *COPY OF PRESCRIPTION DRUG MONITORING REPORT IN PATIENT ARUN: No Instructions: Indwelling Urinary Catheter Care, Adult, Anemia Referrals: PCP,None [Primary Care Provider] - Forms: ED Department Discharge Sepsis Event Note (ED) - Evaluation Sepsis Screening Result: No Definite Risk
== END 2021-07-27 08:44 | disposition home or self-care (01) ==
LOC: DL.ED 06:37
DX: T83.098D Other mechanical complication of other urinary catheter, subsequent encounter (principal); R31.9 Hematuria, unspecified; D50.0 Iron deficiency anemia secondary to blood loss (chronic); I48.91 Unspecified atrial fibrillation; I12.0 Hypertensive chronic kidney disease with stage 5 chronic kidney disease or end stage renal disease; N18.6 End stage renal disease; N40.0 Benign prostatic hyperplasia without lower urinary tract symptoms; Z99.2 Dependence on renal dialysis; Z72.0 Tobacco use; Z88.4 Allergy status to anesthetic agent; Z88.0 Allergy status to penicillin; Z79.899 Other long term (current) drug therapy
CPT/HCPCS: 36415; 51702; 80053; 81001; 85025; 85610; 85730; 87086; 99284-25; A9270-GY; J1170; J7030; U0002

== ENCOUNTER 2021-07-27 06:37 | Inpatient (IN) | payer MEDICARE, BC ==
[2021-07-27] MEDS ORDERED: Tolterodine 2 MG Tab PO ONE (07:11)
[2021-07-27] MEDS ORDERED: Acetaminophen/HYDROcodone 325-10 MG Tab PO ONE (07:13)
[2021-07-27] MEDS ORDERED: Acetaminophen/HYDROcodone 325-5 MG Tab PO ONE (15:45)
[2021-07-27 17:55] LABS: PTT,PARTIAL THROMBOPLSTIN TIME 22.9 SEC (22.0-34.0)
[2021-07-27 17:56] LABS: ANION GAP 16.5 mEq/L (7-13); CHLORIDE,CL 96 mmol/L (98-107); SODIUM,NA 133 mmol/L (136-145)
[2021-07-27] MEDS ORDERED: Sodium Chloride 0.9% 1,000 ML IV ONE (19:04)
[2021-07-27] MEDS ORDERED: HYDROmorphone 1 MG/ML Syringe IV ONE ×2 (19:30→19:52)
[2021-07-27] MEDS ORDERED: Acetaminophen 325 MG Tab PO PRN (19:59)
[2021-07-27] MEDS ORDERED: Ondansetron 4 MG Tab.DIS PO PRN (20:08)
[2021-07-27] MEDS ORDERED: METOPROLOL SUCCINATE 200 MG PO SCH (21:00)
[2021-07-27] MEDS: Ciprofloxacin in D5W 400 MG in Premix Bag 1 BAG IV SCH ×2 (21:03)
[2021-07-27] MEDS: oxyCODONE 5 MG Tab PO PRN (21:21)
[2021-07-27] MEDS: HYDROmorphone 1 MG/ML Syringe IVPUSH PRN ×2 (21:22→23:24)
[2021-07-27] MEDS: hydrALAZINE 25 MG Tab PO SCH (23:32)
[2021-07-28] MEDS: HYDROmorphone 1 MG/ML Syringe IVPUSH PRN ×2 (02:37→13:14)
[2021-07-28] MEDS: Calcitriol 0.25 MCG Cap PO SCH ×2 (02:38→20:39)
[2021-07-28] MEDS: atorvaSTATin 10 MG Tab PO SCH (08:33)
[2021-07-28] MEDS: hydrALAZINE 25 MG Tab PO SCH ×2 (08:33→20:40)
[2021-07-28] MEDS: amLODIPine 5 MG Tab PO SCH (08:33)
[2021-07-28] MEDS: oxyCODONE 5 MG Tab PO PRN (08:53)
[2021-07-28] MEDS ORDERED: Non-Formulary Medication 1 Each (Omega-3/Dha/Epa/Fish Oil [Omega-3 Fish Oil 1,000 Mg Sfgl] PO SCH (09:00)
[2021-07-28] MEDS ORDERED: Non-Formulary Medication 1 Each (Zinc [Zinc] 50 MG Tablet) PO SCH (09:00)
[2021-07-28] MEDS ORDERED: Pantoprazole 40 MG Vial IVPUSH ONE (09:43)
[2021-07-28] MEDS: Metoprolol Succinate 50 MG Tab.ER PO SCH (10:09)
[2021-07-28] MEDS: Sucralfate Suspension 1 GM/10 ML Cup PO SCH ×3 (12:50→20:40)
[2021-07-28] MEDS: Ciprofloxacin in D5W 400 MG in Premix Bag 1 BAG IV SCH ×2 (20:44)
[2021-07-28] MEDS: Pantoprazole 40 MG Vial IVPUSH SCH (20:50)
[2021-07-29] MEDS ORDERED: Furosemide 40 MG/4 ML VIAL IVPUSH STA (00:07)
[2021-07-29] MEDS: Albuterol/Ipratropium 3.0-0.5 MG/3 ML Neb Soln NEB PRN ×2 (00:15→11:14)
[2021-07-29] MEDS: HYDROmorphone 1 MG/ML Syringe IVPUSH PRN ×3 (04:00→12:46)
[2021-07-29] MEDS: Sucralfate Suspension 1 GM/10 ML Cup PO SCH ×4 (06:24→22:13)
[2021-07-29 07:01] LABS: ANION GAP 14.1 mEq/L (7-13)
[2021-07-29] MEDS ORDERED: Piperacillin/Tazobactam 3.375 GM in Sodium Chloride 0.9% 100 ML IV SCH (07:30)
[2021-07-29] MEDS: oxyCODONE 5 MG Tab PO PRN ×2 (08:31→16:01)
[2021-07-29] MEDS: atorvaSTATin 10 MG Tab PO SCH (09:24)
[2021-07-29] MEDS: Metoprolol Succinate 50 MG Tab.ER PO SCH (09:24)
[2021-07-29] MEDS: amLODIPine 5 MG Tab PO SCH (09:25)
[2021-07-29] MEDS: hydrALAZINE 25 MG Tab PO SCH ×2 (09:25→22:12)
[2021-07-29] MEDS: Pantoprazole 40 MG Vial IVPUSH SCH ×2 (09:25→22:16)
[2021-07-29] MEDS ORDERED: Levofloxacin/Dextrose 5%-Water 750 MG in Premix Bag 1 BAG IV ONE (11:00)
[2021-07-29] MEDS: Sodium Chloride 0.9% 10 ML Syringe FLUSH PRN ×2 (11:00→23:39)
[2021-07-29] MEDS: Furosemide 40 MG/4 ML VIAL IVPUSH SCH ×2 (16:38→23:40)
[2021-07-29] MEDS: Calcitriol 0.25 MCG Cap PO SCH (20:02)
[2021-07-30] MEDS ORDERED: Morphine 2 MG/ML SYRINGE IVPUSH ONE (03:36)
[2021-07-30] MEDS: Sodium Chloride 0.9% 10 ML Syringe FLUSH PRN (03:52)
[2021-07-30] MEDS: Sucralfate Suspension 1 GM/10 ML Cup PO SCH ×4 (06:06→20:08)
[2021-07-30 06:50] LABS: ANION GAP 16.6 mEq/L (7-13)
[2021-07-30] MEDS: Furosemide 40 MG/4 ML VIAL IVPUSH SCH ×3 (08:11→23:11)
[2021-07-30] MEDS: hydrALAZINE 25 MG Tab PO SCH ×2 (08:16→20:08)
[2021-07-30] MEDS: amLODIPine 5 MG Tab PO SCH (08:16)
[2021-07-30] MEDS: Pantoprazole 40 MG Vial IVPUSH SCH ×2 (08:17→20:08)
[2021-07-30] MEDS: atorvaSTATin 10 MG Tab PO SCH (08:17)
[2021-07-30] MEDS: Metoprolol Succinate 50 MG Tab.ER PO SCH (08:17)
[2021-07-30] MEDS ORDERED: Iron Polysaccharides Complex 150 MG Cap PO SCH (11:30)
[2021-07-30] MEDS: Albuterol/Ipratropium 3.0-0.5 MG/3 ML Neb Soln NEB SCH ×2 (18:27→20:26)
[2021-07-30] MEDS: HYDROmorphone 1 MG/ML Syringe IVPUSH PRN (20:08)
[2021-07-31] MEDS: Albuterol/Ipratropium 3.0-0.5 MG/3 ML Neb Soln NEB SCH (00:08)
[2021-07-31 02:17] VITALS: BP 170/72
[2021-07-31] MEDS ORDERED: LORazepam 1 MG Tab PO ONE (03:31)
[2021-07-31 04:07] VITALS: PULSE 96
[2021-07-31] MEDS ORDERED: Levofloxacin/Dextrose 5%-Water 500 MG in Premix Bag 1 BAG IV SCH (11:00)
== END 2021-07-31 04:51 | DRG 698 ==
LOC: DL.ED 06:37 → DL.MS 19:54 → UNDOADMIN 19:56
PROVIDERS: ADMIT Internal Medicine; ATTEND Internal Medicine
PROC: 30233N1 Transfusion of Nonautologous Red Blood Cells into Peripheral Vein, Percutaneous Approach (ICD-10-PCS; principal; 2021-07-29)
DX: R33.9 Retention of urine, unspecified (principal); T83.091A Other mechanical complication of indwelling urethral catheter, initial encounter; J96.01 Acute respiratory failure with hypoxia; J18.9 Pneumonia, unspecified organism; N18.6 End stage renal disease; I12.9 Hypertensive chronic kidney disease with stage 1 through stage 4 chronic kidney disease, or unspecified chronic kidney disease; N18.9 Chronic kidney disease, unspecified; D62 Acute posthemorrhagic anemia; I12.0 Hypertensive chronic kidney disease with stage 5 chronic kidney disease or end stage renal disease; K92.2 Gastrointestinal hemorrhage, unspecified; D47.2 Monoclonal gammopathy; R31.9 Hematuria, unspecified; N40.1 Benign prostatic hyperplasia with lower urinary tract symptoms; R33.8 Other retention of urine; E78.5 Hyperlipidemia, unspecified; H54.7 Unspecified visual loss; I48.91 Unspecified atrial fibrillation; F17.210 Nicotine dependence, cigarettes, uncomplicated; F41.9 Anxiety disorder, unspecified; F32.A Depression, unspecified; Z86.19 Personal history of other infectious and parasitic diseases; Z99.2 Dependence on renal dialysis; Z79.82 Long term (current) use of aspirin; Z79.899 Other long term (current) drug therapy; Z88.0 Allergy status to penicillin; Z88.8 Allergy status to other drugs, medicaments and biological substances
CPT/HCPCS: 51702; 51798; 81001; 87086; 99284; A9270 ×2; 36415; 36430; 71045; 80048; 80053; 85025; 85610; 85730; 86850; 86900; 86901; 86920; 86922; 94640; 94660; 99221; 99232; 99233; 99239; C9113; J0744; J1170; J1940; J1956; J2270; J7030; J7620-GY; P9016; U0002